=== PATIENT | male | born 1995 | race Caucasian/White ===

== ENCOUNTER 2018-10-14 15:48 | Emergency (ER) | payer OTHER, SELFPAY ==
[2018-10-14 15:49] VITALS: BP 144/93; PULSE 97; RESP 16; TEMP 36.4; BMI 29.7
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
[2018-10-14 16:57] VITALS: BP 134/88; PULSE 88; RESP 16; O2SAT 98
== END 2018-10-14 16:58 | disposition home or self-care (01) ==
LOC: ED 16:38
PROVIDERS: Emergency Provider Emergency Medicine; Family Provider Family Medicine; PCP Family Medicine
DX: S00.511A Abrasion of lip, initial encounter (principal); F32.9 Major depressive disorder, single episode, unspecified; Z79.899 Other long term (current) drug therapy; Y04.2XXA Assault by strike against or bumped into by another person, initial encounter; Y93.89 Activity, other specified; Y92.89 Other specified places as the place of occurrence of the external cause; Y99.8 Other external cause status
CPT/HCPCS: 99282

== ENCOUNTER 2019-01-06 15:44 | Emergency (ER) | payer OTHER, SELFPAY ==
[2019-01-06 15:45] VITALS: BP 160/94; PULSE 78; RESP 16; TEMP 36.8; O2SAT 98; BMI 28.8
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
--- NOTE | 2019-01-06 16:25 | ED.RN ---
SITTER AT BEDSIDE 1615 FOR 1:1 OBSERVATION
[2019-01-06 16:53] LABS: Absolute Lymphocyte Count 1.36 X10^3/ul (0.83-4.51); Absolute Neutrophil Count 4.6 X10^3/uL (2.0-7.7); Basophil# 0.03 X10^3/uL; Basophil% 0.5 % (0-1); Eosinophil# 0.07 X10^3/uL; Eosinophils% 1.1 % (0-5); Hematocrit 45.2 % (40-54); Hemoglobin 15.7 g/dl (13.0-16.5); Lymphocyte # 1.36 X10^3/ul (4.0); Lymphocyte % 20.6 % (19-41); Mean Corp Hgb Conc 34.7 g/gl (32-36); Mean Corpuscular Hgb 29.3 pg (27.0-32.0); Mean Corpuscular Volume 84.3 fL (80-94); Mean Platelet Vol. 9.3 fl (6.2-12.0); Monocyte# 0.52 X10^3/uL; Monocyte% 7.9 % (0-10); Neutrophil % 69.7 % (47-70); Platelet Count 301 K/mm3 (150-450); RBC Distribution Width CV 12.1 % (11.6-14.6); RBC Distribution Width SD 36.9 fl (35.1-43.9); Red Blood Count 5.36 M/mm3 (4.6-6.2); White Blood Count 6.6 K/mm3 (4.4-11.0)
[2019-01-06 16:54] LABS: Amphetamine Urine VISTA NEGATIVE (<1000 ng/mL); Barbiturate Urine VISTA NEGATIVE (< 200 ng/mL); Benzodiazepine Urine VISTA NEGATIVE (< 200 ng/mL); Cocaine Urine VISTA NEGATIVE (< 300 ng/mL); Ecstacy Urine VISTA NEGATIVE (< 500 ng/mL); Methadone Urine VISTA NEGATIVE (< 300 ng/mL); PCP Urine VISTA NEGATIVE (< 25 ng/mL); THC Urine VISTA POSITIVE (< 50 ng/mL); Vista UDS pH Range 6
[2019-01-06 17:08] LABS: Anion Gap 10 (5-15); BUN 12 mg/dL (7-18); BUN/Creat Ratio 11.1 RATIO (10-20); Calcium,Total 8.8 mg/dL (8.5-10.1); Chloride 108 mmol/L (98-107); Creatinine, Serum 1.08 mg/dL (0.70-1.30); EST Glomerular Filtration Rate 88 mL/min (>60); Est Glom Filt Rate - Afr Amer 107 mL/min (>60); Estimated Creatinine Clearance 107.96 ml/min; Glucose 90 mg/dL (74-106); Potassium 3.4 mmol/L (3.5-5.1); Sodium Level 142 mmol/L (136-145)
[2019-01-06 17:18] LABS: POSITIVE COUNT NO; POSITIVE DIFFERENTIAL NO; POSITIVE MORPHOLOGY NO
[2019-01-06 17:21] LABS: Alcohol, Blood (Medical)-Serum < 3.0 mg/dL
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
--- NOTE | 2019-01-06 17:29 | ED.VIS.GEN ---
History of Present Illness Chief Complaint: Suicidal Past Medical History - Allergies and Home Meds Allergies/Adverse Reactions: Allergies No Known Allergies Allergy (Verified 01/06/19 15:48) Smoking Status: Never smoker Physical Exam Vital Signs/Narrative: Vital Signs Temp Pulse Resp BP Pulse Ox 01/06/19 15:45 98.2 F 78 16 160/94 H 98 ED Disposition - Plan for ED Patient: Disposition: Home or Assisted Living Diagnosis: Depression Instructions: Depression Additional Instructions: Followup at the behavioral health center
== END 2019-01-06 17:40 | disposition home or self-care (01) ==
PROVIDERS: Emergency Provider Emergency Medicine; Family Provider Family Medicine; PCP Family Medicine
DX: F32.9 Major depressive disorder, single episode, unspecified (principal); F43.10 Post-traumatic stress disorder, unspecified; Z79.899 Other long term (current) drug therapy
CPT/HCPCS: 36415; 80048; 80307; 80320; 85025; 99283; G0480

== ENCOUNTER 2019-01-13 09:00 | Outpatient (RCR) | payer OTHER, SELFPAY ==
--- NOTE | 2019-01-13 09:02 | BH.SGPN.GN ---
Behaviors/Verbalizations/Mental Status: [Client alert and oriented, casually dressed and appropriately groomed. Eye contact fair to good. Motor activity appropriate. Speech within normal limits. Affect congruent to topic being discussed, mood depressed, anxious. Thoughts linear and logical, no signs of hallucinations or delusions. Reviewed daily check in sheet, pt reports SI as passive, denies plan, or intent. Therapist will check-in to further assess for safety] Client Response/Progress/Benefit: [Pt mostly engaged in group discussion, listening and providing some input to discussion. At times appearing distracted by own thoughts. Emotion for today is anxious and uncomfortable. Pt indicated that current emotion is due to feeling frustrated and worried about ongoing difficulties in managing mental health sx. Expressed continuing to experience PTSD related sx which further effects ability to cope. Pt receptive of support rom the group and recommendations provided for coping with triggers, though appearing somewhat skeptical of the effectiveness as he notes nothing has been helpful yet. Went on to share ?I just don?t want to be sad anymore?. Able to connect with others indicated feeling similar at times in their own lives as well. Progress limited give pt report of difficulties in identifying and applying healthy skills. Pt recommended continued IOP tx to promote use of coping skills, maintain stability, and prevent decompensation. ] Narrative Note: []
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
--- NOTE | 2019-01-15 09:06 | BH.SGPN.GN ---
Behaviors/Verbalizations/Mental Status: []Client alert and oriented, casually dressed and groomed. Eye contact good. Motor activity appropriate. Speech within normal limits. Affect flat, mood depressed. Thoughts linear, logical, no signs of hallucinations or delusions. Reviewed client?s symptom tracker, client reports thoughts of suicide as 4/5 and risk of suicide as 1/5. Client to meet with his individual therapist today to further assess risk. Client Response/Progress/Benefit: []Client entered session alert and oriented, quiet, but participating when prompted. Client reports feeling ?anxious? today. Client stated he is feeling more anxious than usual, but he does not know the trigger. Client reported ?I feel like everything is weighing on me.? Client stated he is having a hard time identifying mental health wins. With further prompting, client able to recognize that he did the dishes and used deep breathing. Client shared he does not know what he needs today, but he realizes that he should avoid being alone as it could reinforce his anxiety and depression. Client appeared to benefit from identifying things he can avoid that would make his symptoms worse. Will continue IOP as client continues to report depressive symptoms and isolation.
--- NOTE | 2019-01-15 10:15 | BH.SGPN.GN ---
Behaviors/Verbalizations/Mental Status: []Client alert and oriented, neatly dressed and groomed. Eye contact poor. Motor activity withdrawn. Speech within normal limits. Affect flat, mood dysthymic, anxious. Thoughts linear, logical, no signs of hallucinations or delusions. Client Response/Progress/Benefit: []Client responded somewhat well to session, appeared distracted AEB eye contact and withdrawn body language. Group stated that negative thoughts impact one?s emotions, behaviors, and increase mental health symptoms. Client listened as the group defined the various types of cognitive distortions and their impact on mental health. Client did not share out loud which distortions he connects with, but at times he nodded when peers provided examples of personal experience with distortions. Appeared to benefit from increasing awareness of cognitive distortions and how they can impact emotions and behaviors. Client continues to struggle with depressive symptoms that impact his functioning. Will continue IOP to prevent decompensation, maintain safety, and promote use of healthy coping skills.
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
--- NOTE | 2019-01-15 14:44 | BH.MTP_ITS ---
Master Treatment Plan - Patient Information Program Physician:: Dr. Ghosh Primary Therapist:: Vonnie Jurado, [facility] - Psychiatric Diagnoses Psychiatric Diagnoses:: Major depressive disorder recurrent severe without psychosis, generalized anxiety disorder, PTSD, Avoidant Traits Diagnosis Code(s):: F33.2 - Estimated LOS Estimated LOS (in weeks):: 6 Problem/Goal #1 - Problem/Goal #1 Stated Goal:: Client will reduce depression and suicidal ideation due to Major Depressive Disorder through the Intensive Outpatient Program. Description of Barriers: Potential treatment barriers include negative thought patterns, distorted thoughts, low motivation, unhealthy coping, and unsure of commitment to program. Functional Impact: Pt's mental health symptoms impacting ability to complete required tasks and responsibilies at work. Pt has taekn a leave of absence from [employer] [facility] [employer] [facility] [employer] due to mental health symptoms. Pt's anxiety hinders him socially because has difficulty going to events or engaging in activities to meet new people. Pt experiencing increased suicidal ideations. Pt not functioning at baseline. Goal Relevant Strengths/Supports: Pt is intelligent and verbalizes desire to get better. Pt identifies his family and friends to be supportive. - Objectives Objective #1 Stated Objective: Client will learn and utilize 2-3 healthy coping strategies to manage depressive symptoms. Interventions: Therapist will assist client in learning internal coping strategies to manage depressive symptoms, along with helping client identify triggers. Discharge Criteria: Client will have achieved this goal when can verbalize and has practiced at least 2 healthy coping strategies. Target Date: 02/24/19 Review Date: 02/10/19 Objective #2 Stated Objective: Pt will decrease depressive symptoms AEB pt?s score on the DSM 5 cross-cutting measure and improve pt?s daily functioning. Interventions: Through groups and individual therapy, pt will be provided with education on cognitive distortions, mistaken beliefs, and identifying and combating negative self-talk. Therapist will assist pt with getting back into the activities she once enjoyed as well as increasing healthy coping strategies. Discharge Criteria: Pt will have met this goal when pt?s score on the DSM 5 cross cutting measure for depression has been decreased and per pt?s report daily functioning has improved Target Date: 02/24/19 Review Date: 02/10/19 Problem/Goal #2 - Problem/Goal #2 Stated Goal:: Reduce overall frequency, intensity, and duration of the anxiety so that daily functioning is not impaired. Description of Barriers: Potential treatment barriers include negative thought patterns, distorted thoughts, low motivation, unhealthy coping, and unsure of commitment to program. Functional Impact: Pt's mental health symptoms impacting ability to complete required tasks and responsibilies at work. Pt has taekn a leave of absence from [employer] [facility] [employer] due to mental health symptoms. Pt's anxiety hinders him socially because has difficulty going to events or engaging in activities to meet new people. Pt experiencing increased suicidal ideations. Pt not functioning at baseline. Goal Relevant Strengths/Supports: Pt is intelligent and verbalizes desire to get better. Pt identifies his family and friends to be supportive. - Objectives Objective #1 Stated Objective: Client will learn and implement 2-3 calming skills to reduce overall anxiety and manage anxiety symptoms. Interventions: Therapist will teach client calming/relaxation skills and how to apply these skills to everyday life. Discharge Criteria: Client will have achieved this goal when can verbalize at least 2 calming strategies and have practiced techniques to help reduce anxiety. Target Date: 02/24/19 Review Date: 02/10/19 Objective #2 Stated Objective: Pt will decrease anxious symptoms AEB pt?s score on the DSM 5 cross-cutting measure improve pt?s daily functioning. Interventions: Through groups and individual therapy, pt will be provided education about anxiety?s impact on body and common physiological reaction to anxiety. Therapist will teach pt appropriate breathing techniques and build healthy coping skills to manage daily anxieties. Discharge Criteria: Pt will have met this goal when pt?s score on the DSM 5 cross cutting measure for anxiety has been decreased and per pt?s report daily functioning has improved. Target Date: 02/24/19 Review Date: 02/10/19
--- NOTE | 2019-01-18 09:03 | BH.SGPN.GN ---
Behaviors/Verbalizations/Mental Status: []Client alert and oriented, neatly dressed and groomed. Eye contact fair. Motor activity restless, shaking his leg throughout session. Speech within normal limits. Affect constricted, mood dysthymic. Thoughts linear, logical, no signs of hallucinations or delusions. Reviewed client?s symptom tracker. Client indicated 2/5 for thoughts of suicide and 1/5 for risk of suicide. Client's individual therapist was informed and he will be meeting with therapist for a session today. Client Response/Progress/Benefit: []Client responded well to session, receptive to encouragement and emotional support from peers. Client reports feeling ?sad? today. Client reported there is no specific trigger ?I just have sad days.? Client declined to share his stressors and symptoms with group today. 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 Client shared one positive from the weekend is that he spent time with a good friend. When asked what he needed today to help support his mental health client replied ?drugs.? With gentle challenging from therapist, client acknowledged he is looking for a quick fix that has more consequences than positives. The group provided client with ideas that can help him break depressive maintenance cycles and cope with his sadness in a healthy way. Client appeared to benefit from receiving support from the group. Will continue IOP to prevent decompensation, maintain safety, and increase mood stability.
--- NOTE | 2019-01-18 14:05 | BH.MDN_ITS ---
Multi-Disciplinary Note - Note 60-min Individual Time Started:: 11:20 Date: 01/18/19 Purpose of session/treatment goals addressed:: Purpose of session was to assess current symptoms and stressors. Other topics include: identifying emotional triggers, education about connection between thoughts, behaviors, and emotions, and identifying small goal. Eye Contact:: Fair Motor Activity:: Restless Appearance:: Casual Speech:: Appropriate Mood:: Anxious, Dysthymic Affect:: Constricted Thoughts:: Linear, No evidence of hallucinations/delusions noted Staff Interventions:: Therapist used open ended questions to elicit pt's current symptoms and stressors. Therapist assisted pt with processing current emotional struggles connected with a friendship. Therapist provided psychoeducation about connection between thoughts, emotions, and behavior. Therapist assisted pt with identifying and challenging current distorted thought patterns that are impacting mood. Therapist inquired current coping skills patient finds to be helpful. Worked with pt to identify small goal to help pt move towards his goals. Client Response:: Client reported he is struggling today because is feeling over his head with the friendship he has with another aron. Client stated even though he knows this male friend identifies as straight, client is having a hard time not developing romantic feelings for him. Client reported after seeing the male friend last night he went home and did a healthy coping skill of emotional release by crying. Client shared this morning he became sad again because started thinking about how he can never be more than friends with the male friend. Client stated he did not use any coping skills this morning which he recognizes has kept him in a depressed mood. Pt able to identify distorted thoughts that he often has to include: He'll never love me; No one will ever love me; chances of me finding someone else like him are slim; I'm not attractive enough for anyone to like me. Pt struggled with challenging the d istorted thought patterns because he stated I believe those thoughts. With assitance pt gained insight if he continues to have distorted thoughts he will maintain his depressive symptoms. Client identified current coping skills are sleeping, hanging out with his male friend, and smoking marijuana. Client stated he wants to learn other coping skills to manage his anxious and depressed symptoms. Client identified small goal is to not take a nap during the day since he uses that as his way to cope. Risks/Concerns:: Client endorses passive thoughts of , denies suicidal plan or intention to date. Client future focused. Progress Toward Goals/Plan:: Client progress minimal as evidenced by client not able to stay in every group due to struggling with managing his emotions. Client continuing to use unhealthy coping despite awareness the coping skills are not helpful in the long-term. Homework provided for patient to work on short term goal of not taking a nap during the day and taking a walk outside to replace nap. Time Stopped:: 12:20
--- NOTE | 2019-01-20 12:04 | BH.DR.ITP ---
Initial Treatment Plan - Patient Information Visit Information: ADMISSION DATE: EXPECTED LOS: 4-6 weeks - Problems/Symptoms Problem #1:: Depression Symptom:: Sadness, negative rumination, hopelessness Problem #2:: Anxiety Symptom:: Worries, panic attacks
--- NOTE | 2019-01-21 09:19 | BH.COMM ---
Communication Note - Communication with Client Communication Note: Pt scheduled for IOP group on previous date however did not show or call to cancel. Pt's individual therapist attempted to follow-up however he was unable to reach pt and a message encouraging pt to follow-up was left. Individual therapist met with pt on 01/18/19. Pt did not appear to be at risk of harm to self or others, was future oriented, and indicated ability to maintain safety. This therapist attempted to contanct pt to reschedule missed appt. and check-in. Pt again unable to be reached. Encouraged to follow-up by 12:30pm. If unable to reach pt, this therapsit will contact emergency contact.
--- NOTE | 2019-01-21 09:52 | BH.COMM ---
Communication Note - Communication with Client Communication Note: Pt called to follow-up regarding missed appt. He indicated that he is alright but was not feeling well which is why he did not attend [facility] on previous date. Upon further inqury pt admitted that he has been feeling depressed and was isolating yesterday. Pt able to recognize the impact of isolation on mental health and reinforcing negative self-talk. Reports chronic passive thoughts of however denies active SI, plan, or intent. Pt reports he is able to maintain safety on this date and stated plans to visit a friend so he would not be alone. Encouraged to return to [facility] tx and Pt reports plans to attend group tomorrow, 01/22/19.
--- NOTE | 2019-01-21 12:42 | BH.COMM ---
Communication Note - Communication with Client Communication Note: This therapist called client's emergency contact, his mother, as client had not called back into IOP. Client's mother shared she heard from client yesterday and that she would go check on client after work. Client's mother was willing to call into IOP after checking on client. Client's mother stated client did not present as an immediate risk to himself or others and denied to her any suicidal plan or intent.
--- NOTE | 2019-01-21 12:57 | BH.COMM ---
Communication Note - Communication with Client Communication Note: Recieved call from Dr. Giles's office regarding pt's progress. Reviewed ROGELIO. Informed that pt has not been consistent with attendance and is not engaged in group when he is present. Dr. Giles requested to speak with our psychiatrist and this was arranged. Dr. Giles has appointment with pt tomorrow afternoon
--- NOTE | 2019-01-22 14:10 | BH.COMM ---
Communication Note - Communication with Client Communication Note: Client called into IOP and cancelled his scheduled IOP sessions today. Client reported I just can't get out of bed. Client denied active suicidal ideations and reports he is scheduled to see his outpatient psychiatrist today. Client scheduled to attend IOP on Friday next week.
--- NOTE | 2019-01-25 12:56 | BH.COMM ---
Communication Note - Communication with Client Communication Note: Pt does not wish to continue in IOP as he does not see the benefits to group counseling. Pt radah be discharged.
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
== END 2019-01-25 10:00 | disposition home or self-care (01) ==
LOC: BHIOP 09:00
PROVIDERS: Family Provider Family Medicine; PCP Family Medicine; Referring Provider Psychiatry & Neurology Psychiatry; Visit Provider Psychiatry & Neurology Psychiatry
DX: F33.2 Major depressive disorder, recurrent severe without psychotic features (principal); F41.8 Other specified anxiety disorders; F43.10 Post-traumatic stress disorder, unspecified; F40.10 Social phobia, unspecified; Z79.899 Other long term (current) drug therapy; F12.90 Cannabis use, unspecified, uncomplicated
CPT/HCPCS: H0035; 90837; 90853

== ENCOUNTER 2019-02-17 09:00 | Outpatient (RCR) | payer OTHER, SELFPAY ==
--- NOTE | 2019-02-17 09:00 | BH.SGPN.GN ---
Behaviors/Verbalizations/Mental Status: [] Eye contact is poor. Motor activity is appropriate. Appearance is casual. Speech is Appropriate. Mood is depressed. Affect is flat. Thoughts are linear and logical. No evidence of psychosis. Reviewed daily check in sheet and pt reports 3/5 for suicidal ideations and 1/5 for intent. Therapist notified. Complete intake prior to group with therapist who reports he is at baseline. Refer to intake. Client Response/Progress/Benefit: [] Pt spoke when prompted. States that he has returned to [facility] to work o n his depression, anxiety, and PTSD. States I want to improve in all area of my life. Reports that he is more motivated to work on his mental health than he was in the past. Benefited from group support and encouragement. Will continue in [facility] to maintain safety, prevent decompensation, and improve functioning. Narrative Note: []
--- NOTE | 2019-02-17 10:10 | BH.SGPN.GN ---
Behaviors/Verbalizations/Mental Status: [] Eye contact is good. Motor activity is appropriate. Appearance is causal. Speech is Appropriate. Mood is depressed. Affect is flat. Thoughts are linear and logical. No evidence of psychosis. Client Response/Progress/Benefit: [] Pt minimally participated however was attentive throughout the group. Group worked together to define goals and identify the purpose of developing goals which included; identifying and making healthy changes or attempting to maintain a behavior. Group also identified barriers to setting and accomplishing goals which include; can be overwhelming, too much effort, fear of failure, and limited awareness of what to do or change. Attentive during education on developing SMART goals. Benefited from increase awareness of goal-setting methods. Will continue in IOP to prevent decompensation, maintain safety, and increase healthy coping skills. Narrative Note: []
--- NOTE | 2019-02-17 11:51 | BH.DR.ITP ---
Initial Treatment Plan - Patient Information Visit Information: ADMISSION DATE: EXPECTED LOS: 4-6 weeks - Problems/Symptoms Problem #1:: Depression Symptom:: sadness, anhedonia, rumination Symptom:: self-harm by cutting Problem #2:: ANxiety Symptom:: feeling panicky
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
--- NOTE | 2019-02-26 09:00 | BH.SGPN.GN ---
Behaviors/Verbalizations/Mental Status: [] Eye contact is poor. Motor activity is appropriate. Appearance is casual. Speech is Appropriate. Mood is depressed. Affect is flat. Thoughts are linear and logical. No evidence of psychosis. Reviewed daily check in sheet and pt reports 3/5 for suicidal thoughts and 2/5 for intent. Therapist will check in with patient after group. Client Response/Progress/Benefit: [] Pt spoke when prompted. Shared with the group mental health wins which included starting to write again. 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 Shared how this helps with mental health struggles. Anxiety and stress related to filling out [employer] paperwork from work as he is fearful it will not go through. Limited progress due to poor attendance and participation. Not utilizing any skills aside from distraction and sleep (escape). Group provided support, encouragement, and feedback. Will continue in IOP to maintain safety, improve functioning, and increase healthy coping skills. Narrative Note: []
--- NOTE | 2019-02-26 10:24 | BH.SGPN.GN ---
Behaviors/Verbalizations/Mental Status: [Client alert and oriented, casually dressed and groomed. Eye contact fair. Motor activity appropriate. Speech within normal limits, quiet tone. Affect constricted, mood anxious, depressed. Thoughts linear, logical, no signs of hallucinations or delusions. ] Client Response/Progress/Benefit: [Client receptive of session, struggled to remain engaged in discussion though did well to provide some input when elicited by therapist. He listened throughout discussion on the quote and appeared to connect with input provided by fellow participants AEB taking notes and nodding, however pt continues to struggle with self-reflection and connecting group discussion to own life. Client identified communication has been a barrier to communicating emotions with supports in the past. Additionally, noted connecting with discussion surrounding fear of being a burden as a potential barrier. Pt appeared to identify with the benefits of being able to communicate during stressful situations described by the group. He displayed progress in overall ability to participate as displayed by pt volunteering to take on an active participatory role in the activity. He did well to utilize effective communication skills to regulate emotions and ask fellow participants for support as needed, which is outside of pt typical comfort zone. Client appeared to benefit from increasing awareness of how emotions can impact communication and practicing in the moment coping skills. Client to continue IOP to continue o improve ability to discuss mental health and reach out to supports, decrease self-deprecation, reinforce healthy coping skills, as well as prevent decompensation. ] Narrative Note: []
--- NOTE | 2019-02-26 14:37 | BH.MDN ---
Multi-Disciplinary Note - Note 45-min Individual Time Started:: 11:42 Date: 02/26/19 Purpose of session/treatment goals addressed:: Pt expressed increased SI on daily sx policy checker during Process Group. Purpose of this session was to complete a risk assessment, address current stressors, and create a safety plan for weekend. Eye Contact:: Good Motor Activity:: Appropriate Appearance:: Casual Speech:: Appropriate Mood:: Depressed Affect:: Congruent Thoughts:: Linear, Logical, No evidence of hallucinations/delusions noted Staff Interventions:: Therapist asked open-ended and furthering questions to gather additional information regarding pt current sx, stressors, and risk. Completed CSSR to further assess risk level. Utilized VA techniques to elicit change behavior and create a weekend safety plan. Provided local crisis resources. Client Response:: Pt receptive of session and open to discussing factors leading to increased scores for SI on daily self-check sheet this morning. Pt noted scores of 3/5 for suicidal ideation and 2/5 for intent. When therapist inquired what may be contributing to increase in score, pt expressed ?I don?t know, I?m just lonely?. He went on to discuss that when alone his negative thoughts tend to increase and he feels more depressed, noting loneliness as a common trigger for increased SI. Pt shared feeling he has exhausted the amount of help he can ask for from his supports and expressed ?I don?t want to burn them out, I feel like they need a break from me?. Therapist gently challenged pt on this and pt indicated his supports have never indicated they are overwhelmed or frustrated by him. He did well to identify that his supports have expressed the opposite and continue to encourage him to hangout or talk whenever he needs. Pt displayed some progress in ability to imagine himself in his supports? position and discussed that he would be upset if they did not trust he was serious about wanting them to reach out anytime needed. Upon further discussion and completion of the CSSR screener, pt scores represent moderate risk without plan, or intent. Pt indicates ability to maintain safety, is receptive of information on local crisis resources with willingness to seek help should he no longer feel able to maintain safety, and is willing to create a safety plan for weekend. Pt reports passive thoughts of , specifically a brief thought of ?I thought about googling the best way to kill yourself?. Pt denies doing this or related researching of any kind. Denies active SI, specific plan, or intent. Reports thoughts of self-harm 2 weeks ago, denies acting on this. Denies current self-harming thoughts. Open to discussing alternative to self-harming and reports plans to take a cold shower if experiencing these thoughts. Pt and therapist utilized remainder of session to complete safety plan for weekend. Pt expressed plans to meet a friend at the [employer] in [place] after group so that he is not alone. Pt willing to call and follow-up with therapist upon doing so. Expressed plans to spend time writing as well. Risks/Concerns:: See above documentation Progress Toward Goals/Plan:: Limited progress. Pt has had infrequent and inconsistent attendance. Has missed last 2 scheduled group appointments. Recently met with psychiatrist 02/17/19. Medication compliant. Support is pt mother and close friend who lives in his apartment building. Pt is making some, limited progress; however, continues to struggle with group participation, application of healthy coping during times of distress or when upset, and reports significant distorted thought patterns. Pt struggles to reach out to supports consistently due to fears of being a burden. Plan is to continue in IOP on consistent basis to continue to promote change behaviors, reduce depression, and maintain safety. Time Stopped:: 12:27
--- NOTE | 2019-02-26 15:38 | BH.COMM_ITS ---
Communication Note - Communication with Client Communication Note: Therapist contacted pt to follow-up and ensure pt adhered to agreed upon safety plan for afternoon. 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 Pt additionally indicated plans to attend the [place] [employer] festival with friends this weekend. Reports ability to maintain safety and expressed plans to return to group on friday03/01/19.
--- NOTE | 2019-03-01 15:57 | BH.COMM ---
Communication Note - Communication with Client Communication Note: Pt called in again this AM to cancel. He requested to change IOP days to tomorrow. Pt has missed several IOP days due to reported illness. Poor participation in the program. Staff will address this with pt at his next visit.
--- NOTE | 2019-03-02 09:00 | BH.SGPN.GN ---
Behaviors/Verbalizations/Mental Status: [] Eye contact is poor. Motor activity is appropriate. Appearance is casual. Speech is Appropriate. Mood is depressed. Affect is flat. Thoughts are linear and logical. No evidence of psychosis. Reviewed daily check in sheet and no reports 3/5 for suicidal thoughts and 1/5 for intent. Therapist notified. Client Response/Progress/Benefit: [] Pt participated when prompted. Appears disinterested in group discussion and peers. Very short check-in. Daily symptom tracker indicates low anxiety and 4/5 for hopelessness. Utilizing distraction as primary skills which involves playing video games. No progress noted. Minimal effort into group. Inconsistent attendance. Limited benefit from group today. Will continue in IOP to maintain safety, prevent decompensation, and improve functioning. Narrative Note: []
--- NOTE | 2019-03-02 15:04 | BH.MDN ---
Multi-Disciplinary Note - Note 30-min Individual Time Started:: 10:07 Date: 03/02/19 Purpose of session/treatment goals addressed:: Pt expressed wanting to leave for the day following first group and appeared agitated and anxious. Pt indicated SI on daily sx die drawing checker during Process Group. Purpose of this session was to complete a risk assessment, address current stressors and concerns, as well as create a safety plan. Eye Contact:: Good Motor Activity:: Appropriate Appearance:: Casual Speech:: Appropriate Mood:: Anxious, Depressed Affect:: Other - At times incongruent AEB pt smiling and laughing while discussing depression and passive thoughts of . Thoughts:: Linear, Logical, No evidence of hallucinations/delusions noted Staff Interventions:: Therapist asked open-ended and furthering questions to gather additional information regarding pt current sx and stressors resulting in increased anxiety and desire to leave program early on this day. Elicited additional information to assess current risk as well as completed CSSR. Aided pt in establishment of Safety plan for today. Gently challenged pt use of distorted thinking patterns and expressed low motivation and desire to utilize distraction as avoidance. Utilized ND techniques to elicit change behavior and continue to promote engagement in the therapeutic process. Client Response:: Pt expressed plans to leave IOP early on this date and appeared to be anxious and slightly agitated. He was receptive of meeting with this therapist for an individual session prior to leaving group for the day, as primary therapist was facilitating group. Pt expressed ?I don?t know, I?m just really overwhelmed right now? and ?Can I be completely honest? I just really hate being in groups?. He went to indicate that he has difficulties in empathizing with fellow participants, especially during process group, and finds that hearing others discuss their struggles makes him feel worse. Pt expressed continued depression and passive SI since last session on 02/26/19. Pt reports he has been struggling with low motivation to utilize the skills he has learned such as opposite action, thought challenging, and grounding. Denies utilizing the Safety Plan created on 02/26/19 in which pt was to spend time at a dog park with his friend as well as go to [employer]. Reports instead he visited a friend in the apartment building he lives in and ended up drinking alcohol which resulted in pt feeling too sick the next day to attend the [employer] as planned. Pt reports he does not believe this had any negative impacts on mental health progress as he was still able to spend time with friends throughout weekend. Pt continues to report relying solely on his mother and friend in his apartment building for support despite expressed feelings of guilt and fears these supports will become ?burnt out?. Pt able to identify additional supports when prompted, though indicates lack of desire to reach out to them or indicates he is unable to. Reports feeling lonely yesterday evening and engaged in self-harming behaviors via superficial lacerations to his forearm. Pt has a hx of self-harming behaviors via cutting and denies SI or intent to at time of self-harming. Reports he attempted to shawer to prevent self-harm which was unsuccessful, denies using any other grounding or calming skills at that time. Check-in sheet for this date indicated SI at a score of 3/5 and 1/5 for intent. This is consistent with pt baseline and a decrease in score from previous session. Reports passive SI over weekend though denies any plan or intent during that time. Denies active SI, plan, or intent as of this date. Upon further discussion and completion of the CSSR screener, pt scores continue to represent moderate risk without plan, or intent. Pt indicates ability to maintain safety, reports ?I?m not going to hurt myself. I?m too afraid to do that and I have too many people in my life to let myself do that?. He is willing to create a safety plan for the evening and indicates willingness to place any knives in the apartment out of reach until able to give them to his mother this evening. Pt denies current self-harming urges. He expressed plans to attend outpatient psychiatry this afternoon and spend time with his mother this evening in order to maintain safety. Pt willing to call and follow-up with therapist by noon to indicate he has removed any access to lethal means. Risks/Concerns:: See above documentation. Progress Toward Goals/Plan:: Some regression. Pt continues to struggle significantly with isolation, avoidance, and negative thoughts causing increased depression and suicidal ideation. He is able to identify common triggers and warning signs for increased SI as well as potential healthy strategies to reduce crisis escalation and maintain safety. However, despite reporting understanding of the impact isolation and avoidance have on reinforcing depressive sx, pt continues to self-report use of distraction via video games and movies as primary means of coping. Pt self-reports low motivation to apply healthy coping skills or engage in IOP program or group treatment. This is evident by poor attendance and multiple cancelations or rescheduling of IOP appointments. Indicates a desire to seek more intensive individual outpatient services. Pt concerns will be discussed with his outpatient providers as well as individual therapist for IOP program as this therapist is not pt primary therapist. Pt agreeable to discuss concerns and treatment options with his mother and follow-up. As of this session, pt is to remain in IOP tx to maintain safety and prevent decompensation until able to connect with outpatient resources. Time Stopped:: 10:37
--- NOTE | 2019-03-02 16:18 | BH.COMM ---
Communication Note - Communication with Client Communication Note: Therapist contacted pt outpatient psychiatrist, Dr. Giles, for coordination of care purposes and to discuss concerns regaurding pt limited progress in IOP program, difficulties engaging in treatment process, poor attendance, and reported desire to seek more intensive individual outpatient services. Psychiatrist agreeable to discuss further with pt at appointment this afternoon. Will continue to coordinate plan of care.
--- NOTE | 2019-03-02 16:21 | BH.COMM ---
Communication Note - Communication with Client Communication Note: Therapist attempted to contact pt outpatient therapist, Cecilia López, to discuss concerns and plan of care. Unable to reach outpatient provider and a discrete message was left requesting a follow-up phone call.
--- NOTE | 2019-03-02 16:23 | BH.COMM ---
Communication Note - Communication with Client Communication Note: Pt called to follow-up with this therapist as discussed in individual session. Indicates that he has removed any lethal means from his access and is planning to download a new video game to play until attending outpatient psychiatry appointment at 2pm. Pt open to family session with his mother and individual therapist to discuss plan of care moving forward.
== END 2019-03-06 23:59 ==
LOC: BHIOP 09:00
PROVIDERS: Family Provider Family Medicine; PCP Family Medicine; Referring Provider Psychiatry & Neurology Psychiatry; Visit Provider Psychiatry & Neurology Psychiatry
DX: F33.2 Major depressive disorder, recurrent severe without psychotic features (principal); F41.1 Generalized anxiety disorder; F43.10 Post-traumatic stress disorder, unspecified
CPT/HCPCS: H0035; 90832; 90834; 90853

== ENCOUNTER 2019-03-09 09:00 | Outpatient (RCR) | payer OTHER, SELFPAY ==
--- NOTE | 2019-03-09 10:21 | BH.SGPN.GN ---
Behaviors/Verbalizations/Mental Status: [Client alert and oriented, casually dressed and grooming fair. Eye contact fair to good. Motor activity appropriate. Speech within normal limits. Affect constricted, mood depressed. Thoughts linear, logical, at times appearing ruminative in nature, no signs of hallucinations or delusions.] Client Response/Progress/Benefit: [Pt receptive to session, provided minimal input though appearing to listen throughout discussion on stress. Able to connect with input provided by fellow participants on potential positive and negative aspects of stress on physical and mental health. Pt expressed specifically relating to example that stress can result in an increased reliance on unhealthy habits such as sleeping and avoidance. He participated in identifying current stressors impacting mental health. Pt's current stressors include: work related anxiety, expectations of self and others, societal standards, relationships, loneliness, bills, sadness, and anxiety. Pt elected not to process stressors further, though shared loneliness and sadness as major stressors. Appeared to benefit from gaining awareness of own current stressors and learning about the impact stress has on overall wellbeing. Progress limited due to pt inconsistent attendance and engagement in treatment. Recommended continued IOP tx to maintain safety, improve utilization of healthy coping and use of social supports, and reduce depressive sx.] Narrative Note: []
--- NOTE | 2019-03-09 11:17 | BH.SGPN.GN ---
Behaviors/Verbalizations/Mental Status: []Client alert and oriented, casually dressed and groomed. Eye contact fair. Motor activity appropriate. Speech within normal limits. Affect flat, mood depressed and anxious. Thoughts linear, logical, no signs of hallucinations or delusions. Client Response/Progress/Benefit: []Pt passive participant during group discussion, contributed thoughts when elicited by therapist. Pt worked with the group to complete the challenge activity and with elicitation able to identify barriers encountered that may also impact managing stress in daily life. Pt listened attentively to psychoeducation and discussion about the 4 A's of managing stress. Pt stated he wants to work on the adapting by changing his negative thinking. Pt identified using positive self-talk and improving his environment could help. Benefited from increased awareness of the impact of stress on mental health and increasing repertoire stress management strategies. Pt to continue in IOP to prevent decompensation, increase generalization of healthy coping skills, and challenge distorted thoughts. Narrative Note: []
--- NOTE | 2019-03-09 16:38 | BH.MTP ---
Master Treatment Plan - Patient Information Program Physician:: Dr. Ghosh Primary Therapist:: Vonnie Jurado, [facility] - Psychiatric Diagnoses Psychiatric Diagnoses:: Major depressive disorder recurrent severe without psychosis, generalized anxiety disorder, PTSD, Avoidant and Borderline Traits Diagnosis Code(s):: F33.2 - Estimated LOS Estimated LOS (in weeks):: 6 Problem/Goal #1 - Problem/Goal #1 Stated Goal:: Reduce overall frequency, intensity, and duration of the anxiety so that daily functioning is not impaired. Description of Barriers: Potential treatment barriers include negative thought patterns, distorted thoughts, low motivation, substance use, and use of unhealthy coping skills. Additional barrier is unsure of pt commitment to program due to pt discharging from [facility] 3 weeks ago because didn't like group therapy. Functional Impact: Pt's mental health symptoms impacting ability to complete required tasks and responsibilities at work. Pt has taken a leave of absence from work due to mental health symptoms. Pt's anxiety hinders him socially because has difficulty going to events or engaging in activities to meet new people. Pt experiencing increased suicidal ideations. Pt not functioning at baseline. Goal Relevant Strengths/Supports: Pt is intelligent and verbalizes desire to get better. Pt identifies his family and friends to be supportive. - Objectives Objective #1 Stated Objective: Client will learn and implement 2-3 calming skills to reduce overall anxiety and manage anxiety symptoms. Interventions: Therapist will teach client calming/relaxation skills and how to apply these skills to everyday life. Discharge Criteria: Client will have achieved this goal when can verbalize at least 2 calming strategies and have practiced techniques to help reduce anxiety. Target Date: 03/31/19 Review Date: 03/17/19 Objective #2 Stated Objective: Pt will decrease anxious symptoms AEB pt?s score on the DSM 5 cross-cutting measure improve pt?s daily functioning. Interventions: Through groups and individual therapy, pt will be provided education about anxiety?s impact on body and common physiological reaction to anxiety. Therapist will teach pt appropriate breathing techniques and build healthy coping skills to manage daily anxieties. Discharge Criteria: Pt will have met this goal when pt?s score on the DSM 5 cross cutting measure for anxiety has been decreased and per pt?s report daily functioning has improved. Target Date: 03/31/19 Review Date: 03/17/19 Problem/Goal #2 - Problem/Goal #2 Stated Goal:: Client will reduce depression and suicidal ideation due to Major Depressive Disorder through the Intensive Outpatient Program. Description of Barriers: Potential treatment barriers include negative thought patterns, distorted thoughts, low motivation, substance use, and use of unhealthy coping skills. Additional barrier is unsure of pt commitment to program due to pt discharging from [facility] 3 weeks ago because didn't like group therapy. Functional Impact: Pt's mental health symptoms impacting ability to complete required tasks and responsibilities at work. Pt has taken a leave of absence from work due to mental health symptoms. Pt's anxiety hinders him socially because has difficulty going to events or engaging in activities to meet new people. Pt experiencing increased suicidal ideations. Pt not functioning at baseline. Goal Relevant Strengths/Supports: Pt is intelligent and verbalizes desire to get better. Pt identifies his family and friends to be supportive. - Objectives Objective #1 Stated Objective: Client will learn and utilize 2-3 healthy coping strategies to manage depressive symptoms. Interventions: Therapist will assist client in learning internal coping strategies to manage depressive symptoms, along with helping client identify triggers. Discharge Criteria: Client will have achieved this goal when can verbalize and has practiced at least 2 healthy coping strategies. Target Date: 03/31/19 Review Date: 03/17/19 Objective #2 Stated Objective: Pt will decrease depressive symptoms AEB pt?s score on the DSM 5 cross-cutting measure and improve pt?s daily functioning. Interventions: Through groups and individual therapy, pt will be provided with education on cognitive distortions, mistaken beliefs, and identifying and combating negative self-talk. Therapist will assist pt with getting back into the activities she once enjoyed as well as increasing healthy coping strategies. Discharge Criteria: Pt will have met this goal when pt?s score on the DSM 5 cross cutting measure for depression has been decreased and per pt?s report daily functioning has improved Target Date: 03/31/19 Review Date: 03/17/19
--- NOTE | 2019-03-09 22:18 | BH.MDN_ITS ---
Multi-Disciplinary Note - Note 45-min Individual Time Started:: 09:20 Date: 03/09/19 Purpose of session/treatment goals addressed:: Purpose of session was to assess pt's current symptoms and stressors. Other topics included assessing suicidal lethality, identified consequences of substance use, education on behavioral activation. Eye Contact:: Good Motor Activity:: Restless Appearance:: Casual Speech:: Appropriate Mood:: Anxious, Depressed Affect:: Constricted Thoughts:: Linear, Logical, No evidence of hallucinations/delusions noted Staff Interventions:: Therapist used open ended questions to elicit pt's current symptoms and stressors. Therapist processed pt's worries about substance use, assisting pt with identifying consequences of continued use. Therapist provided psychoeducation about behavioral activation and cognitive triangle. Assessed for suicidal lethality. Client Response:: Pt reported over the weekend his mood was better when he was smoking marijuana. Pt shared he spent time with friends and went to a small constitution party, which is something he wouldn't do because of his anxiety. pt stated smoking marijuana chills him out so he can be social around others. Pt expressed concern that he doesn't know if he can stop smoking marijuana because it makes him feel less anxious and makes his mood better. Pt stated although there are benefits to using marijuana he also sees potential consequences. Pt stated he doesn't want to have to rely on a substance to help him function. Pt admitted he hasn't been applying any of the coping skills and strategies that he has learned in IOP. Pt connected with cognitive triangle and concept of behavioral activiation. Pt agreeable to work on engaging in healthy behaviors like listening to music and being social. Pt expressed understanding of needing to attend IOP on a more consistent basis or he won't benefit from program. Risks/Concerns:: Pt stated continues to have suicidal thoughts, denies plan or intentiont to date. Reports lethal means have been removed from home. Future focused. Agreeable to go to nearest emergency room or call 911 if feel unable to maintain safety. Progress Toward Goals/Plan:: Progress limited due to pt's inconsistent attendance. When pt does attend IOP he often doesn't make it to every group due to feeling too anxious. Pt not applying skills outside treatment envrionment. Continues to use marijuana as only coping skill. Pt recommended to continue IOP to increase consistent application of healthy coping, challenge distorted thoughts, and prevent decompensation. Time Stopped:: 10:00
--- NOTE | 2019-03-15 09:02 | BH.SGPN.GN ---
Behaviors/Verbalizations/Mental Status: [Eye contact is fair to good. Motor activity is appropriate. Appearance is neat and grooming appears to be more carefully tended to AEB pt wearing jeans and a polo rather than usual sweat pants, hair styled rather than usual winter hat. Speech is WNL, soft. Mood is depressed, anxious. Affect is constricted. Thoughts are linear and logical. No evidence of psychosis. Pt entered session late and did not complete daily check in sheet. Individual therapist scheduled to meet with pt IOP groups for the day and will further assess for safety. Future oriented.] Client Response/Progress/Benefit: [Pt receptive of session, appearing to be engaged AEB nodding and maintaining eye contact during discussion. Pt provided limited input, though was willing to process with the group despite initial reluctance. He reported difficulties in identifying personal mental health wins and indicated I mean I can give you small positives, but I don't really know about mental health wins. With some guidance, pt able to identify two wins which included spending time being creative over the weekend rather than playing video games. Pt recognized that this is an activity he enjoys that he has not made time for in several weeks and is glad that he was able to do so. Additional win includes putting more effort into his appearance and taking the time to style his hair rather than wearing typical sweatpants and winter cap. Shared doing so as a small step towards preparing himself for returning to work which has been a major stressor for him. Pt progress limited due to inconsistent attendance, limited engagement when in attendance, and self-reports of identified skills. Recommended continued IOP tx to prevent decompensation, increase mood stability, and reinforce application of emotion regulation skills.] Narrative Note: []
--- NOTE | 2019-03-16 16:42 | BH.COMM ---
Communication Note - Communication with Client Communication Note: Pt called to cancel attending IOP today due to not feeling well. Staff reminded pt if he doesn't attend IOP at least two times this week he will be dishcarged from program. Pt stated he would attend IOP tomorrow and .
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
--- NOTE | 2019-03-18 16:48 | BH.COMM_ITS ---
Communication Note - Communication with Client Communication Note: Pt no showed/no called attending IOP on 03/17/19 and 03/18/19. 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 Informed pt he would be discharged from program due to not attending program enough to qualify as intensive outpatient treatment. Asked pt to return phone call to ensure aftercare plan was established. Pt is already established with outpatient counseling and psychiatry.
== END 2019-04-05 23:59 ==
LOC: BHIOP 09:00
PROVIDERS: Family Provider Family Medicine; PCP Family Medicine; Referring Provider Psychiatry & Neurology Psychiatry; Visit Provider Psychiatry & Neurology Psychiatry
DX: F33.2 Major depressive disorder, recurrent severe without psychotic features (principal); F41.1 Generalized anxiety disorder; F43.10 Post-traumatic stress disorder, unspecified; F40.10 Social phobia, unspecified
CPT/HCPCS: H0035; 90834; 90853

== ENCOUNTER → 2019-04-12 09:43 | Outpatient (CLI) | payer OTHER, SELFPAY ==
[2019-04-12 12:35] LABS: Hematocrit 45.6 % (40-54); Hemoglobin 14.8 g/dL (13.0-16.5)
== END ==
PROVIDERS: Nurse Practitioner Family; Family Provider Family Medicine; PCP Family Medicine; Visit Provider Family Medicine
DX: R11.10 Vomiting, unspecified (principal)
CPT/HCPCS: 36415; 85014; 85018

== ENCOUNTER → 2019-05-03 15:10 | Outpatient (CLI) | payer OTHER, SELFPAY ==
[2019-05-03 18:19] LABS: Hematocrit 41.7 % (40-54); Hemoglobin 13.9 g/dL (13.0-16.5); Mean Corp Hgb Conc 33.3 g/dL (32-36); Mean Corpuscular Hgb 29.4 pg (27.0-32.0); Mean Corpuscular Volume 88.3 fL (80-94); Mean Platelet Vol. 9.8 fl (6.2-12.0); Platelet Count 241 K/mm3 (150-450); RBC Distribution Width CV 11.9 % (11.6-14.6); RBC Distribution Width SD 38.3 fl (35.1-43.9); Red Blood Count 4.72 M/mm3 (4.6-6.2); White Blood Count 4.7 K/mm3 (4.4-11.0)
[2019-05-03 18:53] LABS: ALB/GLOB Ratio 1.2 RATIO (0.9-2.4); AST(SGOT) 13 U/L (15-37); Alanine Aminotransfer ALT/SGPT 21 U/L (16-61); Albumin, Serum 3.6 g/dL (3.2-5.0); Alkaline Phosphatase 54 U/L (45-117); Anion Gap 5 (5-15); BUN 10 mg/dL (7-18); BUN/Creat Ratio 10.1 RATIO (10-20); Calcium,Total 8.7 mg/dL (8.5-10.1); Chloride 108 mmol/L (98-107); Creatinine, Serum 0.99 mg/dL (0.70-1.30); EST Glomerular Filtration Rate 97 mL/min (>60); Est Glom Filt Rate - Afr Amer 117 mL/min (>60); Globulin 3.1 g/dL (2.2-4.2); Glucose 94 mg/dL (74-106); Lipase 127 U/L (73-393); Potassium 3.9 mmol/L (3.5-5.1); Protein, Total 6.7 g/dL (6.4-8.2); Sodium Level 142 mmol/L (136-145)
[2019-05-05 12:24] LABS: H. Pylori Antibody (IgG) 0.36 (0.00-0.79)
== END ==
PROVIDERS: Family Provider Family Medicine; PCP Family Medicine; Visit Provider Family Medicine
DX: K29.70 Gastritis, unspecified, without bleeding (principal)
CPT/HCPCS: 36415; 80053; 83690; 85027; 86677

== ENCOUNTER 2019-06-24 09:58 | Day surgery (SDC) | payer OTHER, MEDICAID, SELFPAY ==
[2019-06-12 10:48] VITALS: BMI 29.2
--- NOTE | 2019-06-12 11:00 | HP_ITS ---
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 Is patient in pain?: Yes (abdominal) Allergies No Known Allergies Allergy (Verified 06/12/19 10:47) Medications Aripiprazole [Abilify] 5 mg PO DAILY 10/14/18 [History Confirmed 06/12/19] Duloxetine Hcl [Cymbalta] 60 mg PO DAILY 10/14/18 [History Confirmed 06/12/19] Cholecalciferol (Vitamin D3) [Vitamin D] 50,000 unit PO QWEEK 01/13/19 [History Confirmed 06/12/19] [facility] Medical History Abdominal pain (Acute) Acid reflux (Acute) Anxiety (Acute) Blood in stool (Acute) Depression (Acute) Nausea (Acute) Family History Mother Hypertension Father Hypertension Social History (Updated 06/12/19 @ 11:00 by Dennis Villalba MD) Smoking Status: Never smoker alcohol intake: never HPI HPI HPI: LORI BELL, is a 24 M who presents to the office today for HPI HPI Surgical H&P: Yes HPI: LORI BELL is a 24 M who presents to the office today for surgical consultation regarding hematemesis and bright red rectal bleeding. Patient was referred by his primary care physician Dr. Mp Ashford and a written copy of my surgical consult and recommendations will be returned to him. The patient presented to Dr. Martínez Lawson on May 26, 2019. The patient is referred to me by Dr Martínez Lawson and a written copy of my surgical consult will be returned to him. His complaint at that time was bloating diarrhea reflux symptoms rectal bleeding. He claims that for at least a month or so he is been unwell. He has been started on omeprazole a month ago but continues to have nonspecific epigastric mid abdominal pain. There are no particular foods that cause troubles. He does smoke marijuana to assist with the discomfort. There is a family history with a uncle who had colitis. The patient is currently employed at [employer] in [place]. It is of additional note that he feels that he has had approximately a 20 pound weight loss. As of May 03, 2019 white blood cell count was 4.7 with a hemoglobin 13.9 and hematocrit of 41.7 and platelet count 241,000. BUN is 10 and creatinine 0.99. Liver function tests were normal. H. pylori antibody IgG was 0.36 which is normal ROS General General: Yes weight change and fatigue; no appetite, colon cancer, breast cancer or weakness HEENT HEENT: No difficulty swallowing, eye injury, eye surgery, swollen glands or hoarseness Endo Endocrine: No thyroid disease, diabetes mellitus, thyroid cancer, Hair loss, heat intolerance or cold intolerance Skin Skin: No rash or changing moles Breast Breast: No left breast lump, right breast lump, nipple discharge, breast pain, abnormal mammogram, abnormal US or breast enlargement Musc Musculoskeletal: No back problems, arthritis, rheumatoid arthritis, gout or joint pain Cardio Cardiovascular: No murmur, pacemaker, heart disease, atrial fibrillation, high blood pressure, heart attack, heart stent, palpitations, shortness of breat with exertion or chest pain Psych Psychiatric: Yes depression and anxiety; no hearing voices Resp Respiratory: No shortness of breath, No sleep apnea, No cough, No COPD, No asthma, No emphysema, No wheezing Gastro Gastrointestinal: Yes abdominal pain, Yes nausea or vomiting, Yes diarrhea, No constipation, Yes blood in stool, Yes acid reflux, No hemorrhoids, No ulcers, No gallbladder problem, No black,tarry stools Valentin Hematologic: No blood thinners, No blood disorders, No bleeding, No anemia, No blood clots Neuro Neurologic: No system reviewed and no additional complaints, except as docu, No as per HPI, No abnormal walking, No abnormal hearing, No abnormal movements, No abnormal speech, No behavioral changes, No burning sensations, No confusion, No seizure-like activity, No unsteadiness, No dizziness, No localized weakness, No frequent falls, No headache(s), No lack of coordination, No loss of vision, No memory loss, No numbness, No other visual disturbances, No radiating pain, No restless legs, No sensory deficit, No fainting, No tingling, No tremor(s), No weakness, No other Exam Const General: cooperative, healthy appearing, comfortable, no acute distress Nutritional Appearance: overweight Orientation: alert, awake, oriented x3 HENMT Head: normal to inspection Chest Chest palpation & inspection: normal inspection of the chest Breast Palpation: No nipple discharge Resp Effort & Inspection: normal respiratory effort Auscultation: clear to auscultation bilaterally Cardio Rate: regular rate Rhythm: regular rhythm Heart Sounds: no murmurs Other: Bilateral radial and brachial pulses are 3+ GI Palpation: soft, nontender Auscultation: normal bowel sounds Neuro Cognition: normal cognition Extrem General: no calf tenderness bilaterally Psych Attitude: cooperative Assessment & Plan Problems 1. Hematemesis of unknown cause K92.0 2. Rectal bleeding K62.5 3. Weight loss, non-intentional R63.4 4. Generalized abdominal pain R10.84 Plan History of hematemesis and rectal bleeding and 20 pound non-intentional weight loss. There is a remote family history of colitis. The patient in addition is having generalized abdominal pain of undetermined etiology. He is currently on omeprazole therapy which he thinks has helped with a hematemesis but he still has the generalized abdominal pain. I have offered him a esophagogastroduodenoscopy with biopsy and colonoscopy with biopsy or polypectomy is indicated. He is aware of the technique, benefits, risks, alternatives. He has had an opportunity to ask and have questions answered. We will schedule and proceed at his discretion. I anticipate monitored anesthesia care. He is on antidepressants. I very much appreciate the opportunity of assisting with his surgical care Cc: Dr. Mp Ashford and Dr Marítnez Villalba M.D., F.A.C.S. Coding Level of Care Code 54539 Diagnoses Hematemesis of unknown cause K92.0 Rectal bleeding K62.5 Weight loss, non-intentional R63.4 Generalized abdominal pain R10.84 ??Abdominal location: generalized 06/12/19 1100 <Electronically signed by Dennis van MD> Date _ Dennis Villalba MD I have re-examined the patient. There are no clinical changes since date of exam.
[2019-06-24 10:27] VITALS: BP 118/79; PULSE 86; RESP 16; TEMP 36.7; O2SAT 99; BMI 27.8
[2019-06-24] MEDS: Lactated Ringers 1,000 ML 100 ML IV (10:43)
--- NOTE | 2019-06-24 11:00 | EGD_PTH ---
PATIENT: LORI BELL LOC: EN U#:[id number] AGE/SX: 24/M ROOM: RE06/24/[address]: Dr. Dennis iVllalba MD : 1995 BED: DIS: 06/24/2019 SPEC #: [id number] RECD: 06/24/19 12:59 STATUS: RUBY MICHAEL #: [id number] KERRI: 06/24/19 11:[address]: Dennis Villalba DEPT: SURGICAL PATHOLOGY RECD BY: David Clark ENTERED: 06/24/19 13:10 SP TYPE: EGD BIOPSY OT DR: Dr. Mp Ashford MD Tissues: A - Duodenum, NOS B - Gastric mucous membrane C - Gastric mucous membrane D - Gastric mucous membrane E - Esophageal mucous membrane F - COLON BIOPSY Procedures: PAS Fungus (control) Special Stain Group I Surgery Specimen Level IV HEADER OPERATION: Colonoscopy, EGD ([facility] [place]) PRE-OP DIAGNOSIS: Hematemesis, rectal bleeding, weight loss, generalized abdominal pain TISSUE SUBMITTED: A - Duodenum biopsy, B - Antrum biopsy for histo and H. pylori, C - Gastric polyp biopsy, D - Greater curvature biopsy, E - Distal esophagus biopsy, F - Random colon biopsy MICROSCOPIC DIAGNOSIS A. Duodenum biopsy: A fragment of duodenal mucosa with mild mucosal congestion and hemorrhage. B. Antrum biopsy: Mild gastritis. See microscopic description and comment. C. Gastric polyp, biopsy: Consistent with fundic gland polyp. D. Greater curvature biopsy: A fragment of gastric mucosa with mild chronic inflammation and congestion. E. Distal esophagus, biopsy: Fragments of squamous mucosa with focal ulceration, acute and chronic inflammation, granulation tissue reaction and reactive epithelial changes. Special stain for fungi is negative for organisms; matched control is appropriate. F. Colon, random biopsy: Fragments of colonic mucosa, no pathologic diagnosis. SJ:barbara 06/25/19 COMMENT B. The results of immunohistochemistry for Helicobacter pylori will be reported separately ([id number]). MICROSCOPIC DESCRIPTION Slides are reviewed. B. The specimen shows fragments of gastric mucosa with chronic inflammatory cell infiltrates in the lamina propria consisting of lymphocytes and plasma cells, consistent with mild chronic gastritis. Focal mucosal congestion is also noted. GROSS DESCRIPTION A - Received in fixative is one container labeled with the patient's name and designated duodenal biopsy. The specimen consists of one irregular fragment of light powell soft tissue that measures 0.3 x 0.2 x 0.1 cm. The specimen is totally submitted in one cassette. B - Received in fixative is one container labeled with the patient's name and designated antrum biopsy. The specimen consists of one irregular fragment of light powell soft tissue that measures 0.2 x 0.2 x 0.1 cm. The specimen is totally submitted in one cassette. C - Received in fixative is one container labeled with the patient's name and designated gastric polyp biopsy. The specimen consists of one irregular fragment of light powell soft tissue that measures 0.3 x 0.3 x 0.1 cm. The specimen is totally submitted in one cassette. D - Received in fixative is one container labeled with the patient's name and designated greater curvature biopsy. The specimen consists of one irregular fragment of light powell soft tissue that measures 0.8 x 0.2 x 0.1 cm. The specimen is totally submitted in one cassette. E - Received in fixative is one container labeled with the patient's name and designated distal esophagus biopsy. The specimen consists of multiple irregular fragments of light powell soft tissue that in aggregate measure 1 x 0.2 x 0.1 cm. The specimen is totally submitted in one cassette. F - Received in fixative is one container labeled with the patient's name and designated random colonic biopsy. The specimen consists of multiple irregular fragments of light powell soft tissue that in aggregate measure 2.5 x 1 x 0.1 cm. The specimen is totally submitted in one cassette. / SJ:rg 06/24/19 TC:2 CPT: 54901 x6, 33801
--- NOTE | 2019-06-24 11:00 | IMM_PTH ---
PATIENT: LORI BELL LOC: EN U#:[id number] AGE/SX: 24/M ROOM: RE06/24/[address]: Dr. Dennis Villalba MD : 1995 BED: DIS: 06/24/2019 SPEC #: [id number] RECD: 06/24/19 13:38 STATUS: RUBY REKuldip #: [id number] KERRI: 06/24/19 11:[address]: Dennis Villalba DEPT: IMMUNOHISTOCHEMISTRY RECD BY: Annie Cade ENTERED: 06/24/19 13:38 SP TYPE: IMMUNO OTHR DR: Dr. Mp Ashford MD Tissues: B - Stomach, NOS Procedures: H Pylori (initial) PHYSICIAN & INSTITUTION [place] [id number] SPECIMEN INFORMATION: Tissue Source: B - Antrum biopsy Clinical Info: Hematemesis, rectal bleeding, weight loss, generalized abdominal pain Specimen Number: [id number] CPT code: 17667 METHODOLOGY: Deparaffinized sections of prefer/formalin-fixed tissue or PAP/DQ stained slides are incubated with monoclonal/polyclonal antibodies/oligonucleotide probes. Localization is made via biotin free immunoperoxidase method. Appropriate controls are performed and reacted as expected. Results on target cell population are indicated in the following table: RESULTS: ANTIBODY / CLONE RESULT Block B H Pylori (polyclonal) negative These tests were developed and their performance characteristics determined by [facility]. They may not have been cleared or approved by the U.S. Food and Drug Administration. The FDA has determined that such clearance or approval is not necessary. INTERPRETATION: B. Antrum biopsy: Negative for Helicobacter pylori organisms. SJ:barbara 06/25/19
--- NOTE | 2019-06-24 12:36 | OP.EGD_ITS ---
Patient Name: Rakesh Latham Procedure Date: 06/24/2019 11:52 AM Date of : 1995 Age: 24 Procedure: Upper GI endoscopy Indications: Hematemesis Providers: Dennis Villalba MD Referring MD: Mp Ashford Medicines: See the Anesthesia note for documentation of the administered medications Complications: No immediate complications. Procedure: Pre-Anesthesia Assessment: - Prior to the procedure, a History and Physical was performed, and patient medications and allergies were reviewed. The patient's tolerance of previous anesthesia was also reviewed. The risks and benefits of the procedure and the sedation options and risks were discussed with the patient. All questions were answered, and informed consent was obtained. Prior Anticoagulants: The patient has taken no previous anticoagulant or antiplatelet agents. ASA Grade Assessment: II - A patient with mild systemic disease. After reviewing the risks and benefits, the patient was deemed in satisfactory condition to undergo the procedure. After obtaining informed consent, the endoscope was passed under direct vision. Throughout the procedure, the patient's blood pressure, pulse, and oxygen saturations were monitored continuously. The gastroscope was introduced through the mouth, and advanced to the second part of duodenum. The upper GI endoscopy was accomplished without difficulty. The patient tolerated the procedure well. Scope In: 12:07:51 PM Scope Out: 12:16:48 PM Total Procedure Duration Time 0 hours 8 minutes 57 seconds Findings: A medium-sized hiatal hernia was present. LA Grade C (one or more mucosal breaks continuous between tops of 2 or more mucosal folds, less than 75% circumference) esophagitis with bleeding was found 34 to 38 cm from the incisors. Biopsies were taken with a cold forceps for histology. Scattered moderate inflammation characterized by erosions was found on the greater curvature of the stomach. Biopsies were taken with a cold forceps for histology. A few sessile polyps with no stigmata of recent bleeding were found in the stomach. The polyp was removed with a cold biopsy forceps. Resection and retrieval were complete. Diffuse mildly erythematous mucosa without active bleeding and with no stigmata of bleeding was found in the duodenal bulb. Biopsies were taken with a cold forceps for histology. Impression: - Medium-sized hiatal hernia. - LA Grade C reflux esophagitis. Biopsied. 6cm length/ extensive, wide open hiatal hernia - Gastritis. Biopsied. - A few gastric polyps. Resected and retrieved. - Erythematous duodenopathy. Biopsied. Recommendation: - Discharge patient to home. - Resume previous diet. - Continue present medications. - Use sucralfate tablets 1 gram PO QID. - Telephone my office for pathology results in 1 week. Procedure Code(s): --- Professional --- 75377, Esophagogastroduodenoscopy, flexible, transoral; with biopsy, single or multiple Diagnosis Code(s): --- Professional --- K44.9, Diaphragmatic hernia without obstruction or gangrene K21.0, Gastro-esophageal reflux disease with esophagitis K29.70, Gastritis, unspecified, without bleeding K31.7, Polyp of stomach and duodenum K31.89, Other diseases of stomach and duodenum K92.0, Hematemesis CPT copyright 2017 [employer] [place] [employer]. All rights reserved. The codes documented in this report are preliminary and upon yarn dyer review may be revised to meet current compliance requirements. Dennis Villalba MD 06/24/2019 12:36:34 PM This report has been signed electronically. Number of Addenda: 0 Note Initiated On: 06/24/2019 11:52 AM
[2019-06-24 12:37] VITALS: BP 101/59; BP 118/79; PULSE 83; RESP 16; TEMP 36.4; O2SAT 100
--- NOTE | 2019-06-24 12:39 | OP.COLON_ITS ---
Patient Name: Rakesh Latham Procedure Date: 06/24/2019 12:18 PM Date of : 1995 Age: 24 Procedure: Colonoscopy Indications: Rectal bleeding Providers: Dennis Villalba MD Referring MD: Mp Ashford Medicines: See the Anesthesia note for documentation of the administered medications Patient Profile: Last Colonoscopy: none. The patient's first colonoscopy is today. Complications: No immediate complications. Procedure: Pre-Anesthesia Assessment: - Prior to the procedure, a History and Physical was performed, and patient medications and allergies were reviewed. The patient's tolerance of previous anesthesia was also reviewed. The risks and benefits of the procedure and the sedation options and risks were discussed with the patient. All questions were answered, and informed consent was obtained. Prior Anticoagulants: The patient has taken no previous anticoagulant or antiplatelet agents. ASA Grade Assessment: II - A patient with mild systemic disease. After reviewing the risks and benefits, the patient was deemed in satisfactory condition to undergo the procedure. After I obtained informed consent, the scope was passed under direct vision. Throughout the procedure, the patient's blood pressure, pulse, and oxygen saturations were monitored continuously. The Colonoscope was introduced through the anus and advanced to the cecum, identified by appendiceal orifice and ileocecal valve. The colonoscopy was performed without difficulty. The patient tolerated the procedure well. The quality of the bowel preparation was good. The ileocecal valve and the appendiceal orifice were photographed. Scope In: 12:20:25 PM Scope Withdrawal Time 0 hours 6 minutes 57 seconds Scope Out: 12:29:17 PM Total Procedure Duration Time 0 hours 8 minutes 52 seconds Findings: The digital rectal exam findings include non-thrombosed external hemorrhoids, non-thrombosed internal hemorrhoids and internal hemorrhoids that prolapse with straining, but spontaneously regress to the resting position (Grade II). Pertinent negatives include normal sphincter tone. Scattered diverticula were found in the sigmoid colon and descending colon. The exam was otherwise without abnormality. Biopsies for histology were taken with a cold forceps from the entire colon for evaluation of microscopic colitis. Impression: - Non-thrombosed external hemorrhoids, non-thrombosed internal hemorrhoids and internal hemorrhoids that prolapse with straining, but spontaneously regress to the resting position (Grade II) found on digital rectal exam. - Diverticulosis in the sigmoid colon and in the descending colon. - The examination was otherwise normal. - Biopsies were taken with a cold forceps from the entire colon for evaluation of microscopic colitis. Recommendation: - Discharge patient to home. - Resume previous diet. - Continue present medications. - Telephone my office for pathology results in 1 week. - Repeat colonoscopy at age 48. Procedure Code(s): --- Professional --- 17655, Colonoscopy, flexible; with biopsy, single or multiple Diagnosis Code(s): --- Professional --- K64.1, Second degree hemorrhoids K64.4, Residual hemorrhoidal skin tags K62.5, Hemorrhage of anus and rectum K57.30, Diverticulosis of large intestine without perforation or abscess without bleeding CPT copyright 2017 [employer]. All rights reserved. The codes documented in this report are preliminary and upon rubber stamp assembler review may be revised to meet current compliance requirements. Dennis Villalba MD 06/24/2019 12:39:00 PM This report has been signed electronically. Number of Addenda: 0 Note Initiated On: 06/24/2019 12:18 PM
[2019-06-24 12:42] VITALS: BP 118/79; BP 90/56; PULSE 83; RESP 16; O2SAT 100
[2019-06-24 12:47] VITALS: BP 101/60; BP 118/79; PULSE 85; RESP 16; O2SAT 100
[2019-06-24 12:52] VITALS: BP 105/63; BP 118/79; PULSE 82; RESP 16; TEMP 36.2; O2SAT 100
[2019-06-24 13:27] VITALS: BP 118/79
== END 2019-06-24 13:28 | disposition home or self-care (01) ==
LOC: EN 09:59 → AC 10:01
PROVIDERS: Family Provider Family Medicine; PCP Family Medicine; Referring Provider Surgery; Visit Provider Surgery
PROC: 0DJD8ZZ Inspection of Lower Intestinal Tract, Via Natural or Artificial Opening Endoscopic (ICD-10-PCS; CPT 45378; principal; 2019-06-24 10:55)
DX: K29.70 Gastritis, unspecified, without bleeding (principal); K21.0 Gastro-esophageal reflux disease with esophagitis; K44.9 Diaphragmatic hernia without obstruction or gangrene; K31.7 Polyp of stomach and duodenum; K57.30 Diverticulosis of large intestine without perforation or abscess without bleeding; K64.1 Second degree hemorrhoids; K64.4 Residual hemorrhoidal skin tags; F41.9 Anxiety disorder, unspecified; F32.9 Major depressive disorder, single episode, unspecified; G25.81 Restless legs syndrome; Z79.899 Other long term (current) drug therapy
CPT/HCPCS: 43239; 45380; 88305; 88312; 88342; J7120

== ENCOUNTER 2019-07-29 07:49 | Day surgery (SDC) | payer OTHER, MEDICAID, SELFPAY ==
--- NOTE | 2019-06-12 11:00 | HP_ITS ---
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 Is patient in pain?: Yes (abdominal) Allergies No Known Allergies Allergy (Verified 06/12/19 10:47) Medications Aripiprazole [Abilify] 5 mg PO DAILY 10/14/18 [History Confirmed 06/12/19] Duloxetine Hcl [Cymbalta] 60 mg PO DAILY 10/14/18 [History Confirmed 06/12/19] Cholecalciferol (Vitamin D3) [Vitamin D] 50,000 unit PO QWEEK 01/13/19 [History Confirmed 06/12/19] [facility] Medical History Abdominal pain (Acute) Acid reflux (Acute) Anxiety (Acute) Blood in stool (Acute) Depression (Acute) Nausea (Acute) Family History Mother Hypertension Father Hypertension Social History (Updated 06/12/19 @ 11:00 by Dennis Villalba MD) Smoking Status: Never smoker alcohol intake: never HPI HPI HPI: LORI BELL, is a 24 M who presents to the office today for HPI HPI Surgical H&P: Yes HPI: LORI BELL is a 24 M who presents to the office today for surgical consultation regarding hematemesis and bright red rectal bleeding. Patient was referred by his primary care physician Dr. Mp Ashford and a written copy of my surgical consult and recommendations will be returned to him. The patient presented to Dr. Martínez Lawson on May 26, 2019. The patient is referred to me by Dr Martínez Lawson and a written copy of my surgical consult will be returned to him. His complaint at that time was bloating diarrhea reflux symptoms rectal bleeding. He claims that for at least a month or so he is been unwell. He has been started on omeprazole a month ago but continues to have nonspecific epigastric mid abdominal pain. There are no particular foods that cause troubles. He does smoke marijuana to assist with the discomfort. There is a family history with a uncle who had colitis. The patient is currently employed at [employer] in [employer]. It is of additional note that he feels that he has had approximately a 20 pound weight loss. As of May 03, 2019 white blood cell count was 4.7 with a hemoglobin 13.9 and hematocrit of 41.7 and platelet count 241,000. BUN is 10 and creatinine 0.99. Liver function tests were normal. H. pylori antibody IgG was 0.36 which is normal ROS General General: Yes weight change and fatigue; no appetite, colon cancer, breast cancer or weakness HEENT HEENT: No difficulty swallowing, eye injury, eye surgery, swollen glands or hoarseness Endo Endocrine: No thyroid disease, diabetes mellitus, thyroid cancer, Hair loss, heat intolerance or cold intolerance Skin Skin: No rash or changing moles Breast Breast: No left breast lump, right breast lump, nipple discharge, breast pain, abnormal mammogram, abnormal US or breast enlargement Musc Musculoskeletal: No back problems, arthritis, rheumatoid arthritis, gout or joint pain Cardio Cardiovascular: No murmur, pacemaker, heart disease, atrial fibrillation, high blood pressure, heart attack, heart stent, palpitations, shortness of breat with exertion or chest pain Psych Psychiatric: Yes depression and anxiety; no hearing voices Resp Respiratory: No shortness of breath, No sleep apnea, No cough, No COPD, No asthma, No emphysema, No wheezing Gastro Gastrointestinal: Yes abdominal pain, Yes nausea or vomiting, Yes diarrhea, No constipation, Yes blood in stool, Yes acid reflux, No hemorrhoids, No ulcers, No gallbladder problem, No black,tarry stools Valentin Hematologic: No blood thinners, No blood disorders, No bleeding, No anemia, No blood clots Neuro Neurologic: No system reviewed and no additional complaints, except as docu, No as per HPI, No abnormal walking, No abnormal hearing, No abnormal movements, No abnormal speech, No behavioral changes, No burning sensations, No confusion, No seizure-like activity, No unsteadiness, No dizziness, No localized weakness, No frequent falls, No headache(s), No lack of coordination, No loss of vision, No memory loss, No numbness, No other visual disturbances, No radiating pain, No restless legs, No sensory deficit, No fainting, No tingling, No tremor(s), No weakness, No other Exam Const General: cooperative, healthy appearing, comfortable, no acute distress Nutritional Appearance: overweight Orientation: alert, awake, oriented x3 HENMT Head: normal to inspection Chest Chest palpation & inspection: normal inspection of the chest Breast Palpation: No nipple discharge Resp Effort & Inspection: normal respiratory effort Auscultation: clear to auscultation bilaterally Cardio Rate: regular rate Rhythm: regular rhythm Heart Sounds: no murmurs Other: Bilateral radial and brachial pulses are 3+ GI Palpation: soft, nontender Auscultation: normal bowel sounds Neuro Cognition: normal cognition Extrem General: no calf tenderness bilaterally Psych Attitude: cooperative Assessment & Plan Problems 1. Hematemesis of unknown cause K92.0 2. Rectal bleeding K62.5 3. Weight loss, non-intentional R63.4 4. Generalized abdominal pain R10.84 Plan History of hematemesis and rectal bleeding and 20 pound non-intentional weight loss. There is a remote family history of colitis. The patient in addition is having generalized abdominal pain of undetermined etiology. He is currently on omeprazole therapy which he thinks has helped with a hematemesis but he still has the generalized abdominal pain. I have offered him a esophagogastroduodenoscopy with biopsy and colonoscopy with biopsy or polypectomy is indicated. He is aware of the technique, benefits, risks, alternatives. He has had an opportunity to ask and have questions answered. We will schedule and proceed at his discretion. I anticipate monitored anesthesia care. He is on antidepressants. I very much appreciate the opportunity of assisting with his surgical care Cc: Dr. Mp Ashford and Dr Martínez Villalba M.D., F.A.C.S. Coding Level of Care Code 57833 Diagnoses Hematemesis of unknown cause K92.0 Rectal bleeding K62.5 Weight loss, non-intentional R63.4 Generalized abdominal pain R10.84 ??Abdominal location: generalized 06/12/19 1100 <Electronically signed by Dennis van MD> Date _ Dennis Villalba MD
[2019-07-16 13:47] VITALS: BMI 27.8
[2019-07-29 08:46] VITALS: BP 129/83; PULSE 73; RESP 16; TEMP 36.8; O2SAT 100
== END 2019-07-29 08:45 | disposition home or self-care (01) ==
PROVIDERS: Family Provider Family Medicine; PCP Family Medicine; Referring Provider Family Medicine; Visit Provider Surgery
PROC: F00ZJWZ Instrumental Swallowing and Oral Function Assessment using Swallowing Equipment (ICD-10-PCS; CPT 43235; principal; 2019-07-29 07:55)
DX: K21.9 Gastro-esophageal reflux disease without esophagitis (principal)
CPT/HCPCS: 91010; 91013

== ENCOUNTER → 2019-09-20 07:00 | Outpatient (CLI) | payer OTHER, MEDICAID, SELFPAY ==
[2019-08-12 10:13] VITALS: BMI 29.2
--- NOTE | 2019-09-15 04:04 | HP_ITS ---
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: No Is patient in pain?: No Allergies No Known Allergies Allergy (Verified 09/15/19 15:23) Medications Duloxetine Hcl [Cymbalta] 60 mg PO DAILY 10/14/18 [History Confirmed 09/15/19] Omeprazole 40 mg PO DAILY 06/21/19 [History Confirmed 09/15/19] sucralfate 100 mg/mL oral suspension 1 g PO 4X/DAY #360 ml 08/12/19 [Rx Confirmed 09/15/19] aripiprazole 5 mg tablet 10 mg PO DAILY tab 09/15/19 [History Confirmed 09/15/19] PFSH Medical History Gastritis (Acute) Abdominal pain (Acute) Weight loss, non-intentional (Acute) Rectal bleeding (Acute) Hematemesis of unknown cause (Acute) Acid reflux (Acute) Blood in stool (Acute) Nausea (Acute) Abdominal pain (Acute) Anxiety (Acute) Depression (Acute) Surgical History History of esophagogastroduodenoscopy (EGD) (Acute) Hx of colonoscopy (Acute) Family History Mother Hypertension Father Hypertension Social History (Updated 09/15/19 @ 16:04 by Pavithra Arciniega PA-C) Smoking Status: Never smoker alcohol intake: never substance use type: does not use what type of physical activity do you participate in: none frequency: does not exercise seatbelt use: always HPI HPI HPI: LORI LATHAM is a 24 M who presents to the office today for HPI HPI Surgical H&P: Yes HPI: LORI LATHAM is a 24 M who presents to the office today for an update history and physical. Patient denies recent hospitalizations or illnesses. Patient denies previous complications with anesthesia. He denies cardiac history. Patient's previous history per Dr. Villalba: LORI LATHAM is a 24 M who presents to the office today for ongoing surgical follow-up regarding severe reflux disease and active gastritis. He is currently managed with omeprazole therapy 40 mg daily and sucralfate 4 times daily. States he still has some epigastric discomfort. He states that he has been trying to be more compliant. In additional to the information below on July 29, 2019 had esophageal manometry performed. The LES mean pressure was 8.4 with normal being 13-43. 10 swallows were analyzed. Several swallows demonstrated reflux of bolus after clearance requiring a second swallow to clear. There was a very low LES tone throughout the entire procedure. Contractile strength was felt to be normal. Prior to the patient's esophageal manometry my office notes reflect the following: LORI LATHAM is a 24 M who presents to the office today for surgical consultation regarding hematemesis and rectal bleeding and epigastric pain. On June 24, 2019 I performed a combined upper and lower endoscopy for him. Duodenal biopsies showed some mild mucosal congestion. Antral biopsies mild gastritis. On the greater curvature there was an area of inflammation consistent with mild chronic active inflammation. There were fundic gland polyps that were benign. The distal esophagus was noted to be wide open with hiatal hernia. There was focal ulceration of the mucosa with acute and chronic inflammation of reflux. No fungus identified. H. pylori was negative. Colonoscopy was not remarkable with random colonic biopsies unremarkable and normal. It is felt that the patient's epigastric pain is secondary to gastritis medium- sized hiatal hernia active reflux esophagitis and lack of tone of the LES. He was supposed to been on omeprazole therapy 40 mg daily but appears that this is of variable compliance. At the time of his upper endoscopy I requested that he add sucralfate 1 g p.o. 4 times daily. He has been only partially compliant. He is still complaining of epigastric pain. Regarding the rectal bleeding symptoms I felt that it was likely hemorrhoidal in nature. He did have some diverticulosis. Nonoperative conservative measures recommended. My original office visit notes reflect the following history of complaint: LORI LATHAM, is a 24 M who presents to the office today for surgical consultation regarding hematemesis and bright red rectal bleeding. Patient was referred by his primary care physician Dr. Mp Ashford and a written copy of my surgical consult and recommendations will be returned to him. The patient presented to Dr. Martínez Lawson on May 26, 2019. The patient is referred to me by Dr Martínez Lawson and a written copy of my surgical consult will be returned to him. His complaint at that time was bloating diarrhea reflux symptoms rectal bleeding. He claims that for at least a month or so he is been unwell. He has been started on omeprazole a month ago but continues to have nonspecific epigastric mid abdominal pain. There are no particular foods that cause troubles. He does smoke marijuana to assist with the discomfort. There is a family history with a uncle who had colitis. The patient is currently employed at [employer] in [place]. It is of additional note that he feels that he has had approximately a 20 pound weight loss. As of May 03, 2019 white blood cell count was 4.7 with a hemoglobin 13.9 and hematocrit of 41.7 and platelet count 241,000. BUN is 10 and creatinine 0.99. Liver function tests were normal. H. pylori antibody IgG was 0.36 which is normal [facility] Medical Records Department [address] [place] [address] EGD Report MR#: [id number] Name:LORI LATHAMRep #:[id number] : 1995 24From: Dennis Villalba MD PCP:Mp Ashford MD [place] [facility] [place] Name: Lori Latham Procedure Date: 06/24/2019 11:52 AM Date of : 1995 Age: 24 Procedure: Upper GI endoscopy Indications: Hematemesis Providers: Dennis Villalba MD Referring MD: Mp Ashford Medicines: See the Anesthesia note for documentation of the administered medications Complications: No immediate complications. Procedure: Pre-Anesthesia Assessment: - Prior to the procedure, a History and Physical was performed, and patient medications and allergies were reviewed. The patient's tolerance of previous anesthesia was also reviewed. The risks and benefits of the procedure and the sedation options and risks were discussed with the patient. All questions were answered, and informed consent was obtained. Prior Anticoagulants: The patient has taken no previous anticoagulant or antiplatelet agents. ASA Grade Assessment: II - A patient with mild systemic disease. After reviewing the risks and benefits, the patient was deemed in satisfactory condition to undergo the procedure. After obtaining informed consent, the endoscope was passed under direct vision. Throughout the procedure, the patient's blood pressure, pulse, and oxygen saturations were monitored continuously. The gastroscope was introduced through the mouth, and advanced to the second part of duodenum. The upper GI endoscopy was accomplished without difficulty. The patient tolerated the procedure well. Scope In: 12:07:51 PM Scope Out: 12:16:48 PM Total Procedure Duration Time 0 hours 8 minutes 57 seconds Findings: A medium-sized hiatal hernia was present. LA Grade C (one or more mucosal breaks continuous between tops of 2 or more mucosal folds, less than 75% circumference) esophagitis with bleeding was found 34 to 38 cm from the incisors. Biopsies were taken with a cold forceps for histology. Scattered moderate inflammation characterized by erosions was found on the greater curvature of the stomach. Biopsies were taken with a cold forceps for histology. A few sessile polyps with no stigmata of recent bleeding were found in the stomach. The polyp was removed with a cold biopsy forceps. Resection and retrieval were complete. Diffuse mildly erythematous mucosa without active bleeding and with no stigmata of bleeding was found in the duodenal bulb. Biopsies were taken with a cold forceps for histology. Impression: - Medium-sized hiatal hernia. - LA Grade C reflux esophagitis. Biopsied. 6cm length/ extensive, wide open hiatal hernia - Gastritis. Biopsied. - A few gastric polyps. Resected and retrieved. - Erythematous duodenopathy. Biopsied. Recommendation: - Discharge patient to home. - Resume previous diet. - Continue present medications. - Use sucralfate tablets 1 gram PO QID. - Telephone my office for pathology results in 1 week. Procedure Code(s): --- Professional --- 06121, Esophagogastroduodenoscopy, flexible, transoral; with biopsy, single or multiple Diagnosis Code(s): --- Professional --- K44.9, Diaphragmatic hernia without obstruction or gangrene K21.0, Gastro-esophageal reflux disease with esophagitis K29.70, Gastritis, unspecified, without bleeding K31.7, Polyp of stomach and duodenum K31.89, Other diseases of stomach and duodenum K92.0, Hematemesis CPT copyright 2017 [employer]. All rights reserved. The codes documented in this report are preliminary and upon maintenance pipefitter review may be revised to meet current compliance requirements. Dennis Villalba MD 06/24/2019 12:36:34 PM This report has been signed electronically. Number of Addenda: 0 Note Initiated On: 06/24/2019 11:52 AM 06/24/19 1236 Date Dennis Villalba MD [facility] Medical Records Department [address] [place] [address] Colonoscopy Report MR#: [id number] Name:LORI LATHAMRep #:[id number] : 1995 24From: Dennis Villalba MD PCP:Mp Ashford MD [place] [facility] [place] Name: Lori Latham Procedure Date: 06/24/2019 12:18 PM Date of : 1995 Age: 24 Procedure: Colonoscopy Indications: Rectal bleeding Providers: Dennis Villalba MD Referring MD: Mp Ashford Medicines: See the Anesthesia note for documentation of the administered medications Patient Profile: Last Colonoscopy: none. The patient's first colonoscopy is today. Complications: No immediate complications. Procedure: Pre-Anesthesia Assessment: - Prior to the procedure, a History and Physical was performed, and patient medications and allergies were reviewed. The patient's tolerance of previous anesthesia was also reviewed. The risks and benefits of the procedure and the sedation options and risks were discussed with the patient. All questions were answered, and informed consent was obtained. Prior Anticoagulants: The patient has taken no previous anticoagulant or antiplatelet agents. ASA Grade Assessment: II - A patient with mild systemic disease. After reviewing the risks and benefits, the patient was deemed in satisfactory condition to undergo the procedure. After I obtained informed consent, the scope was passed under direct vision. Throughout the procedure, the patient's blood pressure, pulse, and oxygen saturations were monitored continuously. The Colonoscope was introduced through the anus and advanced to the cecum, identified by appendiceal orifice and ileocecal valve. The colonoscopy was performed without difficulty. The patient tolerated the procedure well. The quality of the bowel preparation was good. The ileocecal valve and the appendiceal orifice were photographed. Scope In: 12:20:25 PM Scope Withdrawal Time 0 hours 6 minutes 57 seconds Scope Out: 12:29:17 PM Total Procedure Duration Time 0 hours 8 minutes 52 seconds Findings: The digital rectal exam findings include non-thrombosed external hemorrhoids, non-thrombosed internal hemorrhoids and internal hemorrhoids that prolapse with straining, but spontaneously regress to the resting position (Grade II). Pertinent negatives include normal sphincter tone. Scattered diverticula were found in the sigmoid colon and descending colon. The exam was otherwise without abnormality. Biopsies for histology were taken with a cold forceps from the entire colon for evaluation of microscopic colitis. Impression: - Non-thrombosed external hemorrhoids, non-thrombosed internal hemorrhoids and internal hemorrhoids that prolapse with straining, but spontaneously regress to the resting position (Grade II) found on digital rectal exam. - Diverticulosis in the sigmoid colon and in the descending colon. - The examination was otherwise normal. - Biopsies were taken with a cold forceps from the entire colon for evaluation of microscopic colitis. Recommendation: - Discharge patient to home. - Resume previous diet. - Continue present medications. - Telephone my office for pathology results in 1 week. - Repeat colonoscopy at age 48. Procedure Code(s): --- Professional --- 84031, Colonoscopy, flexible; with biopsy, single or multiple Diagnosis Code(s): --- Professional --- K64.1, Second degree hemorrhoids K64.4, Residual hemorrhoidal skin tags K62.5, Hemorrhage of anus and rectum K57.30, Diverticulosis of large intestine without perforation or abscess without bleeding CPT copyright 2017 [employer]. All rights reserved. The codes documented in this report are preliminary and upon maintenance pipefitter review may be revised to meet current compliance requirements. Dennis Villalba MD 06/24/2019 12:39:00 PM This report has been signed electronically. Number of Addenda: 0 Note Initiated On: 06/24/2019 12:18 PM 06/24/19 1239 Date Dennis Villalba MD ROS General General: Yes weight change and fatigue; no appetite, colon cancer, breast cancer or weakness HEENT HEENT: No difficulty swallowing, eye injury, eye surgery, swollen glands or hoarseness Endo Endocrine: No thyroid disease, diabetes mellitus, thyroid cancer, Hair loss, heat intolerance or cold intolerance Skin Skin: No rash or changing moles Breast Breast: No left breast lump, right breast lump, nipple discharge, breast pain, abnormal mammogram, abnormal US or breast enlargement Musc Musculoskeletal: No back problems, arthritis, rheumatoid arthritis, gout or joint pain Cardio Cardiovascular: No murmur, pacemaker, heart disease, atrial fibrillation, high blood pressure, heart attack, heart stent, palpitations, shortness of breat with exertion or chest pain Psych Psychiatric: Yes depression and anxiety; no hearing voices Resp Respiratory: No shortness of breath, No sleep apnea, No cough, No COPD, No asthma, No emphysema, No wheezing Gastro Gastrointestinal: Yes abdominal pain, Yes nausea or vomiting, Yes diarrhea, No constipation, Yes blood in stool, Yes acid reflux, No hemorrhoids, No ulcers, No gallbladder problem, No black,tarry stools Valentin Hematologic: No blood thinners, No blood disorders, No bleeding, No anemia, No blood clots Neuro Neurologic: No weakness Exam Const General: cooperative, healthy appearing, comfortable, no acute distress [facility] Head: normal to inspection Eyes General: appearance normal, both eyes and all related structures Neck Neck: normal visual inspection Neck mass: No Chest Breast Palpation: No nipple discharge Resp Effort & Inspection: normal respiratory effort Auscultation: clear to auscultation bilaterally Cardio Rate: regular rate Rhythm: regular rhythm Heart Sounds: no murmurs GI Inspection: normal to inspection Palpation: soft Auscultation: normal bowel sounds Skin General: no rashes or lesions noted Neuro General: no focal motor deficits, CN's II-XI intact bilaterally Extrem General: normal to inspection Psych Appearance: grossly normal Affect: normal affect Assessment & Plan Problems 1. Abdominal pain, unspecified abdominal location R10.9 2. Gastroesophageal reflux disease with esophagitis K21.0 3. Acute gastritis without hemorrhage, unspecified gastritis type K29.[address] Villalba will plan to perform a laparoscopic toupet with full 270 degree wrap. Procedure details, risks and benefits have been reviewed. Patient has had the opportunity to ask and have questions answered. Patient verbally understands and agrees with the plan. Post-op instructions were given to the mother. Patient will need to continue with an H2 rayray even after the procedure. Coding Level of Care Code No Charge Diagnoses Abdominal pain, unspecified abdominal location R10.9 ??Abdominal location: unspecified location Gastroesophageal reflux disease with esophagitis K21.0 ??Esophagitis presence: with esophagitis Acute gastritis without hemorrhage, unspecified gastritis type K29.00 ??Gastritis type: unspecified gastritis ??Chronicity: acute ??Gastritis bleeding: without bleeding Comment Update H&P 09/15/19 1604 <Electronically signed by Pavithra tran PA-C> Date _ Pavithra Arciniega PA-C
[2019-09-15 15:22] VITALS: BMI 29.2
--- NOTE | 2019-09-15 16:11 | EKG12_ITS ---
Test Reason : PRE OP Blood Pressure : / mmHG Vent. Rate : 056 BPM Atrial Rate : 056 BPM P-R Int : 170 ms QRS Dur : 084 ms QT Int : 390 ms P-R-T Axes : 034 049 053 degrees QTc Int : 376 ms Sinus bradycardia Otherwise normal ECG Confirmed by GUADALUPE SKY, FRANCK ([id number]), editor book DENISE MARIANO ([id number]) on 09/17/2019 1:05:47 PM Referred By: Dennis Villalba Confirmed By:SONALI BUTCHER MD
[2019-09-15 17:26] LABS: Hematocrit 44.8 % (40-54); Mean Corp Hgb Conc 33.5 g/dL (32-36); Mean Corpuscular Hgb 29.6 pg (27.0-32.0); Mean Corpuscular Volume 88.5 fL (80-94); Mean Platelet Vol. 9.5 fl (6.2-12.0); Platelet Count 270 K/mm3 (150-450); RBC Distribution Width CV 11.9 % (11.6-14.6); RBC Distribution Width SD 38.2 fl (35.1-43.9); Red Blood Count 5.06 M/mm3 (4.6-6.2); White Blood Count 5.9 K/mm3 (4.4-11.0)
[2019-09-15 17:44] LABS: Anion Gap 2 (5-15); BUN 10 mg/dL (7-18); BUN/Creat Ratio 10.8 RATIO (10-20); Calcium,Total 8.7 mg/dL (8.5-10.1); Chloride 112 mmol/L (98-107); Creatinine, Serum 0.92 mg/dL (0.70-1.30); EST Glomerular Filtration Rate 105 mL/min (>60); Est Glom Filt Rate - Afr Amer 127 mL/min (>60); Glucose 95 mg/dL (74-106); Sodium Level 143 mmol/L (136-145)
[2019-09-20 05:56] VITALS: BP 131/90; PULSE 73; RESP 16; TEMP 36.8; O2SAT 98; BMI 29.4
[2019-09-20] MEDS: Lactated Ringers 1,000 ML 100 ML IV (06:20)
--- NOTE | 2019-09-20 06:37 | PCM.HP.BLA ---
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 Required: No Is patient in pain?: No Allergies No Known Allergies Allergy (Verified 09/15/19 15:23) Medications Duloxetine Hcl [Cymbalta] 60 mg PO DAILY 10/14/18 [History Confirmed 09/15/19] Omeprazole 40 mg PO DAILY 06/21/19 [History Confirmed 09/15/19] sucralfate 100 mg/mL oral suspension 1 g PO 4X/DAY #360 ml 08/12/19 [Rx Confirmed 09/15/19] aripiprazole 5 mg tablet 10 mg PO DAILY tab 09/15/19 [History Confirmed 09/15/19] FOR[facility]LY [facility] Medical History Gastritis (Acute) Abdominal pain (Acute) Weight loss, non-intentional (Acute) Rectal bleeding (Acute) Hematemesis of unknown cause (Acute) Acid reflux (Acute) Blood in stool (Acute) Nausea (Acute) Abdominal pain (Acute) Anxiety (Acute) Depression (Acute) Surgical History History of esophagogastroduodenoscopy (EGD) (Acute) Hx of colonoscopy (Acute) Family History Mother Hypertension Father Hypertension Social History (Updated 09/15/19 @ 16:04 by Pavithra Arciniega PA-C) Smoking Status: Never smoker alcohol intake: never substance use type: does not use what type of physical activity do you participate in: none frequency: does not exercise seatbelt use: always HPI HPI HPI: LORI LATHAM, is a 24 M who presents to the office today for HPI HPI Surgical H&P: Yes HPI: LORI LATHAM, is a 24 M who presents to the office today for an update history and physical. Patient denies recent hospitalizations or illnesses. Patient denies previous complications with anesthesia. He denies cardiac history. Patient's previous history per Dr. Villalba: LORI LATHAM, is a 24 M who presents to the office today for ongoing surgical follow-up regarding severe reflux disease and active gastritis. He is currently managed with omeprazole therapy 40 mg daily and sucralfate 4 times daily. States he still has some epigastric discomfort. He states that he has been trying to be more compliant. In additional to the information below on July 29, 2019 had esophageal manometry performed. The LES mean pressure was 8.4 with normal being 13-43. 10 swallows were analyzed. Several swallows demonstrated reflux of bolus after clearance requiring a second swallow to clear. There was a very low LES tone throughout the entire procedure. Contractile strength was felt to be normal. Prior to the patient's esophageal manometry my office notes reflect the following: LORI LATHAM, is a 24 M who presents to the office today for surgical consultation regarding hematemesis and rectal bleeding and epigastric pain. On June 24, 2019 I performed a combined upper and lower endoscopy for him. Duodenal biopsies showed some mild mucosal congestion. Antral biopsies mild gastritis. On the greater curvature there was an area of inflammation consistent with mild chronic active inflammation. There were fundic gland polyps that were benign. The distal esophagus was noted to be wide open with hiatal hernia. There was focal ulceration of the mucosa with acute and chronic inflammation of reflux. No fungus identified. H. pylori was negative. Colonoscopy was not remarkable with random colonic biopsies unremarkable and normal. It is felt that the patient's epigastric pain is secondary to gastritis medium-sized hiatal hernia active reflux esophagitis and lack of tone of the LES. He was supposed to been on omeprazole therapy 40 mg daily but appears that this is of variable compliance. At the time of his upper endoscopy I requested that he add sucralfate 1 g p.o. 4 times daily. He has been only partially compliant. He is still complaining of epigastric pain. Regarding the rectal bleeding symptoms I felt that it was likely hemorrhoidal in nature. He did have some diverticulosis. Nonoperative conservative measures recommended. My original office visit notes reflect the following history of complaint: LORI LATHAM, is a 24 M who presents to the office today for surgical consultation regarding hematemesis and bright red rectal bleeding. Patient was referred by his primary care physician Dr. Mp Ashford and a written copy of my surgical consult and recommendations will be returned to him. The patient presented to Dr. Martínez Lawson on May 26, 2019. The patient is referred to me by Dr Martínez Lawson and a written copy of my surgical consult will be returned to him. His complaint at that time was bloating diarrhea reflux symptoms rectal bleeding. He claims that for at least a month or so he is been unwell. He has been started on omeprazole a month ago but continues to have nonspecific epigastric mid abdominal pain. There are no particular foods that cause troubles. He does smoke marijuana to assist with the discomfort. There is a family history with a uncle who had colitis. The patient is currently employed at [employer] in [place]. It is of additional note that he feels that he has had approximately a 20 pound weight loss. As of May 03, 2019 white blood cell count was 4.7 with a hemoglobin 13.9 and hematocrit of 41.7 and platelet count 241,000. BUN is 10 and creatinine 0.99. Liver function tests were normal. H. pylori antibody IgG was 0.36 which is normal [facility] Medical Records Department [address] [place] [address] EGD Report MR#: [id number] Name:LORI LATHAMRep #:[id number] : 1995 24From: Dennis Villalba MD PCP:Mp Ashford MD Status:[facility] Patient Name: Lori Latham Procedure Date: 06/24/2019 11:52 AM Date of : 1995 Age: 24 Procedure: Upper GI endoscopy Indications: Hematemesis Providers: Dennis Villalba MD Referring MD: Mp Ashford Medicines: See the Anesthesia note for documentation of the administered medications Complications: No immediate complications. Procedure: Pre-Anesthesia Assessment: - Prior to the procedure, a History and Physical was performed, and patient medications and allergies were reviewed. The patient's tolerance of previous anesthesia was also reviewed. The risks and benefits of the procedure and the sedation options and risks were discussed with the patient. All questions were answered, and informed consent was obtained. Prior Anticoagulants: The patient has taken no previous anticoagulant or antiplatelet agents. ASA Grade Assessment: II - A patient with mild systemic disease. After reviewing the risks and benefits, the patient was deemed in satisfactory condition to undergo the procedure. After obtaining informed consent, the endoscope was passed under direct vision. Throughout the procedure, the patient's blood pressure, pulse, and oxygen saturations were monitored continuously. The gastroscope was introduced through the mouth, and advanced to the second part of duodenum. The upper GI endoscopy was accomplished without difficulty. The patient tolerated the procedure well. Scope In: 12:07:51 PM Scope Out: 12:16:48 PM Total Procedure Duration Time 0 hours 8 minutes 57 seconds Findings: A medium-sized hiatal hernia was present. LA Grade C (one or more mucosal breaks continuous between tops of 2 or more mucosal folds, less than 75% circumference) esophagitis with bleeding was found 34 to 38 cm from the incisors. Biopsies were taken with a cold forceps for histology. Scattered moderate inflammation characterized by erosions was found on the greater curvature of the stomach. Biopsies were taken with a cold forceps for histology. A few sessile polyps with no stigmata of recent bleeding were found in the stomach. The polyp was removed with a cold biopsy forceps. Resection and retrieval were complete. Diffuse mildly erythematous mucosa without active bleeding and with no stigmata of bleeding was found in the duodenal bulb. Biopsies were taken with a cold forceps for histology. Impression: - Medium-sized hiatal hernia. - LA Grade C reflux esophagitis. Biopsied. 6cm length/ extensive, wide open hiatal hernia - Gastritis. Biopsied. - A few gastric polyps. Resected and retrieved. - Erythematous duodenopathy. Biopsied. Recommendation: - Discharge patient to home. - Resume previous diet. - Continue present medications. - Use sucralfate tablets 1 gram PO QID. - Telephone my office for pathology results in 1 week. Procedure Code(s): --- Professional --- 91676, Esophagogastroduodenoscopy, flexible, transoral; with biopsy, single or multiple Diagnosis Code(s): --- Professional --- K44.9, Diaphragmatic hernia without obstruction or gangrene K21.0, Gastro-esophageal reflux disease with esophagitis K29.70, Gastritis, unspecified, without bleeding K31.7, Polyp of stomach and duodenum K31.89, Other diseases of stomach and duodenum K92.0, Hematemesis CPT copyright 2017 [employer]. All rights reserved. The codes documented in this report are preliminary and upon local tanker truck driver review may be revised to meet current compliance requirements. Dennis Villalba MD 06/24/2019 12:36:34 PM This report has been signed electronically. Number of Addenda: 0 Note Initiated On: 06/24/2019 11:52 AM 06/24/19 1236 Date Dennis Villalba MD [facility] Medical Records Department [address] [place] [address] Colonoscopy Report MR#: [id number] Name:LORI LATHAMRep #:[id number] : 1995 24From: Dennis Villalba MD PCP:Mp Ashford MD Status:[facility] Patient Name: Lori Latham Procedure Date: 06/24/2019 12:18 PM Date of : 1995 Age: 24 Procedure: Colonoscopy Indications: Rectal bleeding Providers: Dennis Villalba MD Referring MD: Mp Ashford Medicines: See the Anesthesia note for documentation of the administered medications Patient Profile: Last Colonoscopy: none. The patient's first colonoscopy is today. Complications: No immediate complications. Procedure: Pre-Anesthesia Assessment: - Prior to the procedure, a History and Physical was performed, and patient medications and allergies were reviewed. The patient's tolerance of previous anesthesia was also reviewed. The risks and benefits of the procedure and the sedation options and risks were discussed with the patient. All questions were answered, and informed consent was obtained. Prior Anticoagulants: The patient has taken no previous anticoagulant or antiplatelet agents. ASA Grade Assessment: II - A patient with mild systemic disease. After reviewing the risks and benefits, the patient was deemed in satisfactory condition to undergo the procedure. After I obtained informed consent, the scope was passed under direct vision. Throughout the procedure, the patient's blood pressure, pulse, and oxygen saturations were monitored continuously. The Colonoscope was introduced through the anus and advanced to the cecum, identified by appendiceal orifice and ileocecal valve. The colonoscopy was performed without difficulty. The patient tolerated the procedure well. The quality of the bowel preparation was good. The ileocecal valve and the appendiceal orifice were photographed. Scope In: 12:20:25 PM Scope Withdrawal Time 0 hours 6 minutes 57 seconds Scope Out: 12:29:17 PM Total Procedure Duration Time 0 hours 8 minutes 52 seconds Findings: The digital rectal exam findings include non-thrombosed external hemorrhoids, non-thrombosed internal hemorrhoids and internal hemorrhoids that prolapse with straining, but spontaneously regress to the resting position (Grade II). Pertinent negatives include normal sphincter tone. Scattered diverticula were found in the sigmoid colon and descending colon. The exam was otherwise without abnormality. Biopsies for histology were taken with a cold forceps from the entire colon for evaluation of microscopic colitis. Impression: - Non-thrombosed external hemorrhoids, non-thrombosed internal hemorrhoids and internal hemorrhoids that prolapse with straining, but spontaneously regress to the resting position (Grade II) found on digital rectal exam. - Diverticulosis in the sigmoid colon and in the descending colon. - The examination was otherwise normal. - Biopsies were taken with a cold forceps from the entire colon for evaluation of microscopic colitis. Recommendation: - Discharge patient to home. - Resume previous diet. - Continue present medications. - Telephone my office for pathology results in 1 week. - Repeat colonoscopy at age 48. Procedure Code(s): --- Professional --- 59568, Colonoscopy, flexible; with biopsy, single or multiple Diagnosis Code(s): --- Professional --- K64.1, Second degree hemorrhoids K64.4, Residual hemorrhoidal skin tags K62.5, Hemorrhage of anus and rectum K57.30, Diverticulosis of large intestine without perforation or abscess without bleeding CPT copyright 2017 [employer]. All rights reserved. The codes documented in this report are preliminary and upon local tanker truck driver review may be revised to meet current compliance requirements. Dennis Villalba MD 06/24/2019 12:39:00 PM This report has been signed electronically. Number of Addenda: 0 Note Initiated On: 06/24/2019 12:18 PM 06/24/19 1239 Date Dennis Villalba MD ROS General General: Yes weight change and fatigue; no appetite, colon cancer, breast cancer or weakness HEENT HEENT: No difficulty swallowing, eye injury, eye surgery, swollen glands or hoarseness Endo Endocrine: No thyroid disease, diabetes mellitus, thyroid cancer, Hair loss, heat intolerance or cold intolerance Skin Skin: No rash or changing moles Breast Breast: No left breast lump, right breast lump, nipple discharge, breast pain, abnormal mammogram, abnormal US or breast enlargement Musc Musculoskeletal: No back problems, arthritis, rheumatoid arthritis, gout or joint pain Cardio Cardiovascular: No murmur, pacemaker, heart disease, atrial fibrillation, high blood pressure, heart attack, heart stent, palpitations, shortness of breat with exertion or chest pain Psych Psychiatric: Yes depression and anxiety; no hearing voices Resp Respiratory: No shortness of breath, No sleep apnea, No cough, No COPD, No asthma, No emphysema, No wheezing Gastro Gastrointestinal: Yes abdominal pain, Yes nausea or vomiting, Yes diarrhea, No constipation, Yes blood in stool, Yes acid reflux, No hemorrhoids, No ulcers, No gallbladder problem, No black,tarry stools Valentin Hematologic: No blood thinners, No blood disorders, No bleeding, No anemia, No blood clots Neuro Neurologic: No weakness Exam Const General: cooperative, healthy appearing, comfortable, no acute distress [facility] Head: normal to inspection Eyes General: appearance normal, both eyes and all related structures Neck Neck: normal visual inspection Neck mass: No Chest Breast Palpation: No nipple discharge Resp Effort & Inspection: normal respiratory effort Auscultation: clear to auscultation bilaterally Cardio Rate: regular rate Rhythm: regular rhythm Heart Sounds: no murmurs GI Inspection: normal to inspection Palpation: soft Auscultation: normal bowel sounds Skin General: no rashes or lesions noted Neuro General: no focal motor deficits, CN's II-XI intact bilaterally Extrem General: normal to inspection Psych Appearance: grossly normal Affect: normal affect Assessment & Plan Problems 1. Abdominal pain, unspecified abdominal location R10.9 2. Gastroesophageal reflux disease with esophagitis K21.0 3. Acute gastritis without hemorrhage, unspecified gastritis type K29.[address] Villalba will plan to perform a laparoscopic toupet with full 270 degree wrap. Procedure details, risks and benefits have been reviewed. Patient has had the opportunity to ask and have questions answered. Patient verbally understands and agrees with the plan. Post-op instructions were given to the mother. Patient will need to continue with an H2 rayray even after the procedure. Coding Level of Care Code No Charge Diagnoses Abdominal pain, unspecified abdominal location R10.9 ??Abdominal location: unspecified location Gastroesophageal reflux disease with esophagitis K21.0 ??Esophagitis presence: with esophagitis Acute gastritis without hemorrhage, unspecified gastritis type K29.00 ??Gastritis type: unspecified gastritis ??Chronicity: acute ??Gastritis bleeding: without bleeding Comment Update H&P 09/15/19 8584 <Electronically signed by Pavithra Arciniega PA-C> Date Pavithra Arciniega PA-C Cosigner Signature: Date (if applicable) CC: ~ I have re-examined the patient. There are no clinical changes since date of exam.
== END ==
LOC: AC 05:58 → PAT 10-22 10:58
PROVIDERS: PCP Family Medicine; Referring Provider Surgery; Visit Provider Surgery
DX: Z01.810 Encounter for preprocedural cardiovascular examination (principal); Z01.818 Encounter for other preprocedural examination
CPT/HCPCS: 36415; 80048; 85027; 93005; J7120

== ENCOUNTER 2020-04-01 22:34 | Emergency (ER) | payer OTHER, MEDICAID, SELFPAY ==
[2020-02-17 09:07] VITALS: BMI 29.4
[2020-04-01 22:35] VITALS: BP 149/98; PULSE 91; RESP 18; TEMP 36.3; O2SAT 99; BMI 29.5
--- NOTE | 2020-04-02 00:12 | ED.VIS.GI ---
History of Present Illness Chief Complaint: Abd Pain Informant: Patient, Family - Abdominal Pain/Flank Pain Onset: Today - around 12-14 hrs or so Context: Gradual Onset Timing: Continuous Quality: Aching Location: Diffuse Current Severity: Moderate Maximum Severity: Moderate Worsened by: Nothing Relieved by: Remaining Still, - - hasn't tried any medications/treatments - Nausea/Vomiting/Emesis GI Symptom: Negative for: Nausea, Vomiting - Diarrhea/Melena/Hematochezia GI Symptom: Negative for: Diarrhea, Melena, Hematochezia Associated Symptoms: Negative for: Dysuria, Frequency, Hematuria, Urgency Narrative: Patient presenting with diffuse abdominal discomfort that radiates into his back diffusely. He has had some mild versions of this before but nothing this severe or persistent, although he has not tried any medications to try to abort it. He has severe GERD, and is scheduled for a Neto fundoplication in 2 weeks. He is compliant with his omeprazole and takes medications for anxiety and depression. - Past Medical History (1) Acid reflux Status: Chronic (2) Anxiety Status: Chronic (3) Depression Status: Chronic Past Medical History - Allergies and Home Meds Allergies/Adverse Reactions: Allergies No Known Allergies Allergy (Verified 04/01/20 22:37) Primary Care Physician: Mp Ashford MD [Primary Care Provider] - Lives: With Family Smoking Status: Never smoker Alcohol: None Review of Systems General: Denies: Chills, Fever, Sweats Eyes: Denies: Visual changes - bilaterally, Diplopia ENT: Denies: Rhinorrhea, Sore throat Cardiovascular: Denies: Chest pain, Palpitations Respiratory: Denies: Dyspnea, Cough, Dyspnea on exertion Gastrointestinal: Reports: Abdominal pain. Denies: Nausea, Vomiting, Diarrhea, Melena, Hematochezia Genitourinary: Denies: Dysuria, Hematuria, Frequency Musculoskeletal: Reports: Back pain. Denies: Myalgias, Neck pain, Swelling, Extremity Pain Skin: Denies: Rash, Wounds Neurological: Denies: Headache, Weakness, Numbness Physical Exam Vital Signs/Narrative: Vital Signs Temp Pulse Resp BP Pulse Ox 04/01/20 22:35 97.4 F L 91 18 149/98 H 99 Inital Vital Signs reviewed: Yes General: Well nourished, Well developed, No Acute Distress Head: Normocephalic, Atraumatic Eyes: Perrl, EOMI ENT: Moist mucous membranes, No rhinorrhea Neck: Supple, Nontender Cardiovascular: Regular rate, Regular rhythm, No murmurs Respiratory: No distress, CTA bilaterally, Chest nontender Abdomen: Soft, Nontender, Nondistended, Normal bowel sounds Back: Nontender, Normal Inspection. Negative for: CVA tenderness Extremities: Nontender, No edema Skin: Normal color, No rash Neurological: Alert, Oriented x3, Cranial nerves II-XII grossly intact, Normal Strength, Normal Sensation Psychological: Normal affect, Normal Mood Diagnostic/Tx/Re-eval - Medical Decision Making I offered GI cocktail and dicyclomine to the patient for symptoms, and we discussed work-up. He really does not want it, and I am fine with that. I went to reevaluate him and he and his mother had already left. Disposition: Left prior to discharge ED Disposition - Plan for ED Patient: Disposition: Home or Assisted Living Diagnosis: Diffuse abdominal pain, GERD (gastroesophageal reflux disease) Instructions: Medications for GERD Referrals: Mp Ashford MD [Primary Care Provider] - As Needed
[2020-04-02] MEDS: Mag Hydrox/Al Hydrox/Simeth 30 ML UDC PO (00:17)
[2020-04-02] MEDS: Dicyclomine 10 MG Capsule 20 MG PO (00:17)
== END 2020-04-02 01:22 | disposition home or self-care (01) ==
PROVIDERS: Emergency Provider Emergency Medicine; PCP Family Medicine
DX: R10.84 Generalized abdominal pain (principal); K21.9 Gastro-esophageal reflux disease without esophagitis; F32.9 Major depressive disorder, single episode, unspecified; F41.9 Anxiety disorder, unspecified; Z79.899 Other long term (current) drug therapy
CPT/HCPCS: 99282

== ENCOUNTER → 2020-04-04 14:39 | Outpatient (CLI) | payer OTHER, MEDICAID, SELFPAY ==
[2020-04-04 14:14] VITALS: BMI 29.5
[2020-04-04 15:19] LABS: Absolute Lymphocyte Count 2.01 X10^3/uL (0.83-4.51); Absolute Neutrophil Count 4.4 X10^3/uL (2.0-7.7); Basophil# 0.04 X10^3/uL; Basophil% 0.6 % (0-1); Eosinophil# 0.18 X10^3/uL; Eosinophils% 2.6 % (0-5); Hematocrit 44.3 % (40-54); Hemoglobin 14.6 g/dL (13.0-16.5); Lymphocyte # 2.01 X10^3/ul (4.0); Lymphocyte % 28.6 % (19-41); Mean Corpuscular Hgb 28.5 pg (27.0-32.0); Mean Corpuscular Volume 86.4 fL (80-94); Mean Platelet Vol. 9.3 fl (6.2-12.0); Monocyte# 0.43 X10^3/uL; Monocyte% 6.1 % (0-10); NRBC Flagged by Analyzer 0 % (0-5); Neutrophil # 4.35 X10^3/uL (2.7-7.7); Neutrophil % 61.8 % (47-70); Platelet Count 273 K/mm3 (150-450); RBC Distribution Width CV 12.1 % (11.6-14.6); RBC Distribution Width SD 38.4 fl (35.1-43.9); Red Blood Count 5.13 M/mm3 (4.6-6.2)
[2020-04-04 15:27] LABS: Erythrocyte Sedimentation Rate 6 mm/hr (0-15)
[2020-04-04 15:35] LABS: AST(SGOT) 15 U/L (15-37); Alanine Aminotransfer ALT/SGPT 36 U/L (16-61); Albumin, Serum 3.6 g/dL (3.2-5.0); Alkaline Phosphatase 70 U/L (45-117); Anion Gap 2 (5-15); BUN 13 mg/dL (7-18); BUN/Creat Ratio 12.5 RATIO (10-20); CRP 3.28 mg/L (0.0-3.0); Chloride 111 mmol/L (98-107); Creatinine, Serum 1.04 mg/dL (0.70-1.30); EST Glomerular Filtration Rate 91 mL/min (>60); Est Glom Filt Rate - Afr Amer 110 mL/min (>60); Globulin 3.7 g/dL (2.2-4.2); Glucose 95 mg/dL (74-106); Lipase 100 U/L (73-393); Potassium 3.9 mmol/L (3.5-5.1); Protein, Total 7.3 g/dL (6.4-8.2); Sodium Level 142 mmol/L (136-145)
[2020-04-04 23:11] LABS: Xtra Tube EP Lab EXTRA TUBE
== END ==
PROVIDERS: PCP Family Medicine; Referring Provider Surgery; Visit Provider Surgery
DX: K29.70 Gastritis, unspecified, without bleeding (principal); R10.9 Unspecified abdominal pain
CPT/HCPCS: 36415; 80053; 83690; 85025; 85652; 86140

== ENCOUNTER → 2020-04-05 18:23 | Outpatient (CLI) | payer OTHER, MEDICAID, SELFPAY ==
[2020-04-04 14:14] VITALS: BMI 29.5
--- NOTE | 2020-04-05 18:27 | US_ITS ---
STUDY: ABDOMINAL ULTRASOUND - RIGHT UPPER QUADRANT REASON FOR VISIT: Male, 25 years old ABD PAIN-UPPER RADIATES TO BACK TECHNIQUE: Ultrasound evaluation of the right upper quadrant was performed with real-time and static frankel-scale imaging. TECHNICAL QUALITY: Adequate. COMPARISON: None. FINDINGS: Liver: The liver measures 15.4 cm. There is normal echogenicity of the liver. The bile ducts are within normal limits. There is hepatic color flow. The direction of portal flow is hepatopetal. There is no demonstrated mass lesion. Gallbladder: Normal distended gallbladder. The gallbladder wall measures 3 mm. There is a negative sonographic Jackson''s sign. There is no pericholecystic fluid. There appears to be mild biliary sludge but no shadowing stones.. Common Bile Duct (C.B.D.): The common bile duct measures 5 mm. Pancreas: There is suboptimal visualization of pancreas which appears to be grossly within normal limits. If concern for pancreatic disease CT recommended. Right Kidney: Normal size of the right kidney. The right kidney measures 10.5 x 5.3 x 5.7 cm. Normal renal cortex. The right cortex measures 1.6 cm. There is no demonstrated renal mass or cyst. There is no right hydronephrosis. US/Gallbladder IMPRESSION: Contracted thick-walled gallbladder with mild biliary sludge but no shadowing stones or definitive evidence for acute cholecystitis. HIDA scan would be helpful for further evaluation if indicated Limited study of the pancreas which appears to be grossly within normal limits Electronically Signed: Zelalem Varela MD at 19:08 EDT , Service support ,
== END ==
PROVIDERS: PCP Family Medicine; Visit Provider Surgery
DX: R10.11 Right upper quadrant pain (principal)
CPT/HCPCS: 76705

== ENCOUNTER → 2020-04-13 12:56 | Outpatient (CLI) | payer OTHER, MEDICAID, SELFPAY ==
[2020-04-04 14:14] VITALS: BMI 29.5
--- NOTE | 2020-04-13 12:58 | NM_ITS ---
CLINICAL: 25-year-old male with reported history of right upper quadrant abdominal pain. RADIONUCLIDE HEPATOBILIARY SCINTIGRAPHY COMPARISON: Abdominal ultrasound report 04/05/2020 FINDINGS: Following the intravenous administration of 5.5 mCi of 99m Tc Mebrofenin, hepatobiliary images reveal: 1. Relatively prompt and homogeneous radiopharmaceutical concentration is noted by a normal sized liver. No parenchymal defects are identified. 2. Gallbladder activity is identified at 10 minutes post radiopharmaceutical administration. 3. Small intestinal tract is not visualized during 60 minutes of pre-CCK sequential imaging. Small bowel activity is identified following the administration of cholecystokinin. 4. Washout of the radiopharmaceutical by the hepatic parenchyma appears qualitatively normal. Cholecystokinin (0.02 ug/kg) was administered intravenously over a 30-minute period. The post CCK gallbladder ejection fraction calculated at 20 minutes following Cholecystokinin administration was noted to be 12.0 % (normal greater than 35%). NM/Hepatobilliary Img w/Pharm Int IMPRESSION: 1. ABNORMAL 99m Tc Mebrofenin hepatobiliary imaging examination with Cholecystokinin. A. A gallbladder ejection fraction calculated to be less than 35% following the administration of Cholecystokinin is consistent with the presence of functional hepatobiliary disease (gallbladder and/or sphincter of Oddi dyskinesia) and/or organic hepatobiliary disease (chronic acalculous cholecystitis and/or cystic duct syndrome) in patients with intermediate to high pretest likelihoods of hepatobiliary illness. (Heather Catherine et al, Journal of Nuclear Medicine 32:1695, 1991). Electronically Signed: Bassam Zimmer DO at 23:29 EDT Tel , Service support ,
== END ==
PROVIDERS: PCP Family Medicine; Referring Provider Surgery; Visit Provider Surgery
DX: R10.9 Unspecified abdominal pain (principal); R11.0 Nausea
CPT/HCPCS: 78227; A9537; J2805

== ENCOUNTER 2020-04-19 11:56 | Observation (INO) | payer OTHER, MEDICAID, SELFPAY ==
[2020-02-17 09:07] VITALS: BMI 29.4
[2020-04-04 14:14] VITALS: BMI 29.5
[2020-04-19] VITALS (11 sets, daily range): BP systolic 115–168; BP diastolic 58–101; PULSE 70–105; RESP 16–20; TEMP 36.3–37.7; O2SAT 96–99; BMI 30.1
--- NOTE | 2020-04-19 06:02 | EKG12_ITS ---
Test Reason : PRE OP Blood Pressure : / mmHG Vent. Rate : 062 BPM Atrial Rate : 062 BPM P-R Int : 178 ms QRS Dur : 094 ms QT Int : 376 ms P-R-T Axes : 036 039 037 degrees QTc Int : 381 ms Normal sinus rhythm with sinus arrhythmia Nonspecific ST abnormality Abnormal ECG Confirmed by MARKUS SKY, TIMI ([id number]), editorial director WINDY HAYS ([id number]) on 04/20/2020 10:25:18 AM Referred By: Dennis Villalab Confirmed By:TIMI APARICIO MD
[2020-04-19] MEDS: Lactated Ringers 1,000 ML 100 ML IV ×2 (06:30→10:00)
--- NOTE | 2020-04-19 06:39 | PCM.HP.BLA ---
Problem List (1) Acid reflux Status: Chronic Qualifiers: Esophagitis presence: with esophagitis Esophagitis bleeding: without hemorrhage Qualified Code(s): K21.00 - Gastro-esophageal reflux disease with esophagitis, without bleeding (2) Biliary dyskinesia Status: Acute History and Physical Date of Admission: 04/19/20 Intake Visit Reasons: Discuss new symptoms and surgery Chief Complaint: abd pain Magnetizer Required: No Is patient in pain?: Yes (abdominal pain) Allergies No Known Allergies Allergy (Verified 04/04/20 14:13) Medications Duloxetine Hcl [Cymbalta] 60 mg PO DAILY 10/14/18 [History Confirmed 04/04/20] Omeprazole 40 mg PO DAILY 06/21/19 [History Confirmed 04/04/20] sucralfate 100 mg/mL oral suspension 1 g PO 4X/DAY #360 ml 08/12/19 [Rx Confirmed 04/04/20] aripiprazole 5 mg tablet 10 mg PO DAILY tab 09/15/19 [History Confirmed 04/04/20] PFSH Medical History Gastritis (Acute) Abdominal pain (Acute) Weight loss, non-intentional (Acute) Rectal bleeding (Acute) Hematemesis of unknown cause (Acute) Acid reflux (Chronic) Blood in stool (Acute) Nausea (Acute) Abdominal pain (Acute) Anxiety (Chronic) Depression (Chronic) Surgical History History of esophagogastroduodenoscopy (EGD) (Acute) Hx of colonoscopy (Acute) Family History Mother Hypertension Father Hypertension Social History (Updated 04/04/20 @ 15:[address] Dennis Villalba MD) Smoking Status: Current every day smoker alcohol intake: never substance use type: does not use what type of physical activity do you participate in: none frequency: does not exercise seatbelt use: always HPI HPI HPI: LORI BELL, is a 25 M who presents to the office today for surgical consultation regarding an episode severe abdominal pain with radiation to the back. The patient describes an episode of severe epigastric and bilateral subcostal pain with radiation to his back. It was sharp mostly constant somewhat waxed and waned. He has known gastritis but he claims he has been continuously on his omeprazole therapy. He claims that he has not been using the additional Carafate that was prescribed however that when he was using it that he noticed no significant improvement. This pain was severe enough that he presented to the [facility] emergency room on April 02, 2020. No laboratory or imaging was obtained at that time. He received a GI cocktail. He describes to me that that made minimal improvement. Because of the lateness of the hour and the lack of prompt attention the patient and his mother elected to leave. He states that he is been an ongoing pain since that time. He states that he has not been taking any eroc-oss-xvsbvly pain medicine. He claims that there is no change with eating. Eating does not improve or worsen his discomfort. He claims that there is nothing in particular that he can use or take or do that alters the discomfort. He claims he has had no history of back disc disease. He denies any hematuria he has had no history of kidney stones. Claims that he has not had any previous work-up for gallbladder disease. He has not been diagnosed as having irritable bowel syndrome. I have been an extensive evaluation with him for wide open lower esophageal sphincter and reflux esophagitis and in fact he is scheduled for laparoscopic repair of hiatal hernia and a laparoscopic toupet procedure. My previous notes reflect the following. Intake Visit Reasons: Update H&P Hiatal Hernia/Toupet Chief Complaint: discuss surgery Magnetizer Required: No Accompanied by: Mother Is patient in pain?: No Allergies No Known Allergies Allergy (Verified 02/17/20 09:07) Medications Duloxetine Hcl [Cymbalta] 60 mg PO DAILY 10/14/18 [History Confirmed 02/17/20] Omeprazole 40 mg PO DAILY 06/21/19 [History Confirmed 02/17/20] sucralfate 100 mg/mL oral suspension 1 g PO 4X/DAY #360 ml 08/12/19 [Rx Confirmed 02/17/20] aripiprazole 5 mg tablet 10 mg PO DAILY tab 09/15/19 [History Confirmed 02/17/20] [facility] Medical History Gastritis (Acute) Abdominal pain (Acute) Weight loss, non-intentional (Acute) Rectal bleeding (Acute) Hematemesis of unknown cause (Acute) Acid reflux (Acute) Blood in stool (Acute) Nausea (Acute) Abdominal pain (Acute) Anxiety (Acute) Depression (Acute) Surgical History History of esophagogastroduodenoscopy (EGD) (Acute) Hx of colonoscopy (Acute) Family History Mother Hypertension Father Hypertension Social History (Updated 02/17/20 @ 10:[address] Dennis Villalba MD) Smoking Status: Never smoker alcohol intake: never substance use type: does not use what type of physical activity do you participate in: none frequency: does not exercise seatbelt use: always HPI HPI HPI: LORI BELL, is a 24 M who presents to the office today for ongoing surgical consultation regarding consideration for a laparoscopic repair of his hiatal hernia. My previous notes reflect the following interpretation. On upper endoscopy the patient has a wide open distal esophagus and moderate sized hiatal hernia. On today's visit however he shares with me that he frequently gags. Is not clear whether this is reflux or his anxiety causing the gagging. For period of time he was well managed on the 40 mg of omeprazole daily. I did add sucralfate to that. There is a degree of medicine noncompliance. He is anxious about using a proton pump inhibitor long-term. Today was a consultative appointment. I reviewed the results of his esophageal motility exam with the patient and his mother present. It was remarkable during his upper endoscopy how widely patent his EG junction was. He had erosive esophagitis some mild distal gastritis but some active gastritis of the main body of the stomach. He is currently on omeprazole and sucralfate therapy. In detail I have discussed considerations for a surgical reflux procedure. We have discussed the technique, benefit, risks, alternatives. He is 24 years of age. I believe that a laparoscopic repair of his hiatal hernia with a laparoscopic toupet with a full 270 degree wrap would offer him good resolution of his reflux in the least likelihood to cause additional symptomatology. I have stressed the importance however that he would need to be maintained on medication for his gastritis. Hopefully that could be reduced to a H2 rayray. HPI HPI HPI: LORI BELL, is a 24 M who presents to the office today for ROS General General: Yes weight change and fatigue; no appetite, colon cancer, breast cancer or weakness HEENT HEENT: No difficulty swallowing, eye injury, eye surgery, swollen glands or hoarseness Endo Endocrine: No thyroid disease, diabetes mellitus, thyroid cancer, Hair loss, heat intolerance or cold intolerance Skin Skin: No rash or changing moles Breast Breast: No left breast lump, right breast lump, nipple discharge, breast pain, abnormal mammogram, abnormal US or breast enlargement Musc Musculoskeletal: No back problems, arthritis, rheumatoid arthritis, gout or joint pain Cardio Cardiovascular: No murmur, pacemaker, heart disease, atrial fibrillation, high blood pressure, heart attack, heart stent, palpitations, shortness of breat with exertion or chest pain Psych Psychiatric: Yes depression and anxiety; no hearing voices Resp Respiratory: No shortness of breath, No sleep apnea, No cough, No COPD, No asthma, No emphysema, No wheezing Gastro Gastrointestinal: Yes abdominal pain, Yes nausea or vomiting, Yes diarrhea, No constipation, Yes blood in stool, Yes acid reflux, No hemorrhoids, No ulcers, No gallbladder problem, No black,tarry stools Valentin Hematologic: No blood thinners, No blood disorders, No bleeding, No anemia, No blood clots Neuro Neurologic: No weakness Exam Chest Breast Palpation: No nipple discharge Cardio Heart Sounds: no murmurs Assessment & Plan Problems 1. Gastroesophageal reflux disease with esophagitis K21.0 Plan Today was again consultative appointment. We discussed he had some symptoms of gagging we discussed the wide open distal esophagus and absent lower esophageal sphincter tone we discussed that hiatal hernia and plan for partial wrap repair. We discussed potential complications particularly esophageal injury or splenic injury. We discussed his gagging symptoms. Whether this would put the wrap at risk of failure. We additionally discussed Covid-19 and risk of exposure at the hospital. He has had an opportunity to ask and have questions answered. I believe that he would be a good candidate for surgical intervention. His anxiety and gagging could put the wrap at risk but is not clear to me that some of his gagging is not a component of his free reflux. No guarantees of success have been offered. The [facility] currently is reporting a low local incidence. He needs more time to consider his treatment options. He will recontact us as to how we would like to proceed. He was given postoperative dietary and activity instructions for his review. Copy: Dr. Mp Ashford Time spent 20 minutes Dennis Villalba M.D., F.A.C.S. HPI HPI HPI: LORI BELL, is a 25 M who presents to the office today for ROS General General: Yes weight change and fatigue; no appetite, colon cancer, breast cancer or weakness HEENT HEENT: No difficulty swallowing, eye injury, eye surgery, swollen glands or hoarseness Endo Endocrine: No thyroid disease, diabetes mellitus, thyroid cancer, Hair loss, heat intolerance or cold intolerance Skin Skin: No rash or changing moles Breast Breast: No left breast lump, right breast lump, nipple discharge, breast pain, abnormal mammogram, abnormal US or breast enlargement Musc Musculoskeletal: No back problems, arthritis, rheumatoid arthritis, gout or joint pain Cardio Cardiovascular: No murmur, pacemaker, heart disease, atrial fibrillation, high blood pressure, heart attack, heart stent, palpitations, shortness of breat with exertion or chest pain Psych Psychiatric: Yes depression and anxiety; no hearing voices Resp Respiratory: No shortness of breath, No sleep apnea, No cough, No COPD, No asthma, No emphysema, No wheezing Gastro Gastrointestinal: Yes abdominal pain, Yes nausea or vomiting, Yes diarrhea, No constipation, Yes blood in stool, Yes acid reflux, No hemorrhoids, No ulcers, No gallbladder problem, No black,tarry stools Valentin Hematologic: No blood thinners, No blood disorders, No bleeding, No anemia, No blood clots Neuro Neurologic: No weakness Exam Chest Breast Palpation: No nipple discharge Cardio Heart Sounds: no murmurs Assessment & Plan Problems 1. Epigastric pain R10.13 Plan The cause of this severe epigastric bilateral subcostal pain with radiation to his back is not clear. I was very specific and cautionary with the patient today. The proposed surgery only will improve reflux symptoms. He is well aware that it will do nothing to improve abdominal pain or pain radiating to his back. I now have concerns that he has potential other etiology to this pain and could be gallbladder in nature. Etiology seems unclear. This does not seem to correlate well with simple gastroesophageal reflux disease. Not sure whether this could be gallbladder or possible renal. I recommend that we obtain a complete metabolic profile and a CBC with differential and a CRP and an ESR and a lipase and a urinalysis and a gallbladder ultrasound. If the gallbladder ultrasounds not remarkable then I recommend a hepatobiliary scan. He is aware of the current recommendations. He is aware that if need be I will place his reflux surgery on hold. He is aware that I diagnosis would not likely be made at the time of surgery. He is aware that an etiology needs to be determined prior. I will not recommend or prescribe narcotic pain treatment at this time as the etiology to this discomfort is unclear. It may very well be that the patient has irritable bowel syndrome. I have also discussed this with him. It is a diagnosis of exclusion. He may therefore require medical or GI treatment for that. He has had an opportunity to ask and have questions answered. We will pursue the testing as noted. Copy Dr. Mp Villalba M.D., F.A.C.S. The patient had an abnormal hepatobiliary scan with an ejection fraction of only 12%. This is felt to correlate well with his complaint of epigastric right upper quadrant pain. In addition to that he has the gastroesophageal reflux disease. He presents today for anticipated laparoscopic repair of his hiatal hernia with a laparoscopic toupet procedure and if appropriate I anticipate proceeding with a laparoscopic cholecystectomy with selective cholangiography. The patient and his mother are aware of technique, benefit, risk, alternatives. He has had an opportunity to ask and have questions answered. We will proceed as noted. Dennis Villalba M.D., F.A.C.S.
--- NOTE | 2020-04-19 06:58 | DCINST_ITS ---
Additional Instructions: Please refer to the preprinted instructions regarding activity and diet Allergies/Adverse Reactions: Allergies No Known Allergies Allergy (Verified 04/19/20 06:07) Medications to take at Discharge Duloxetine Hcl [Cymbalta] 60 mg PO DAILY 10/14/18 Omeprazole 40 mg PO DAILY 06/21/19 sucralfate 100 mg/mL oral suspension 1 g PO 4X/DAY #360 ml 08/12/19 aripiprazole 5 mg tablet 10 mg PO DAILY tab 09/15/19 Primary Care Physician: Mp Ashford MD [Primary Care Provider] - Test Results: Test results from this visit will be discussed in further detail at your follow- up appointment, if applicable. Please Follow Up With: Dennis Villalba MD - [phone] When: Call to make an appointment to be seen in about 10 days.
[2020-04-19] MEDS: Cefazolin 2 GM in 0.9% Normal Saline 100 ML IV (07:26)
--- NOTE | 2020-04-19 07:30 | GALL_PTH ---
PATIENT: LORI BELL LOC: [facility]3 U#:[id number] AGE/SX: 25/M ROOM: [facility]319 RE04/19/[address]: Dr. Dennis Villalba MD : 1995 BED: 1 DIS: 04/20/2020 SPEC #: [id number] RECD: 04/19/20 11:55 STATUS: RUBY RODRIGUEZ #: [id number] KERRI: 04/19/20 07:[address]: Dennis Villalba DEPT: SURGICAL PATHOLOGY RECD BY: Cody Whitehead ENTERED: 04/19/20 12:22 SP TYPE: NICOLASA MCDUFFIE DR: Dr. Mp Ashford MD Tissues: Gallbladder, NOS Procedures: Surgery Specimen Level III HEADER OPERATION: Laparoscopic cholecystectomy PRE-OP DIAGNOSIS: Acid reflux, esophagitis, GERD TISSUE SUBMITTED: Gallbladder MICROSCOPIC DIAGNOSIS Gallbladder, cholecystectomy: Mild chronic cholecystitis. No stones are identified in the container or in the gallbladder. SJ:barbara 04/20/20 MICROSCOPIC DESCRIPTION Slides are reviewed. GROSS DESCRIPTION Received is one container labeled with the patient's name and designated gallbladder. The specimen consists of a gallbladder measuring 10 cm in length and up to 4 cm in diameter. The external surface is pink-powell, smooth and glistening for the most part. Focally it is granular, hemorrhagic and contains cautery artifact. The gallbladder contains green-yellow mucoid bile. No stones are identified in the container or in the gallbladder. The mucosa is bile-stained and without any mass lesions. The gallbladder wall measures up to 0.3 cm in thickness. A focal area of increased subserosal fat is noted. Chargemaster Analyst sections from the gallbladder and the cystic duct are submitted in one cassette. / SAVANNAH:barbara 04/19/20 TC:3 [facility]: [id number]
[2020-04-19] MEDS: Bupivacaine Mpf 0.5% 30 ML VIAL (11:38)
--- NOTE | 2020-04-19 11:48 | PCM.OPRPT ---
Problem List (1) Acid reflux Status: Chronic Qualifiers: Esophagitis presence: with esophagitis Esophagitis bleeding: without hemorrhage Qualified Code(s): K21.00 - Gastro-esophageal reflux disease with esophagitis, without bleeding (2) Biliary dyskinesia Status: Acute Report of Operation Date of Procedure: 04/19/20 Pre-Operative Diagnosis: Gastroesophageal reflux disease with severe reflux esophagitis. Biliary dyskinesia Post-Operative Diagnosis: Same Surgery/Procedure Performed:: Laparoscopic repair of hiatal hernia with laparoscopic toupet procedure. Postprocedural esophagogastroduodenoscopy. Laparoscopic cholecystectomy Description of Surgical Findings:: Timeout and informed consent was obtained. 25-year-old was taken to the operating placed supine on the table underwent general endotracheal intubation anesthesia. He was placed in a low lithotomy position with careful buttock cushioning with rolled blankets and careful padding of legs and arms. Left arm was tucked at his side right arm was had an armboard he was on a beanbag. The abdomen was sterilely prepped and draped. Ioban draping was utilized as well. Ancef 2 g were given intravenously preoperatively. 0.5% Marcaine was used as a local anesthetic. 30 cc was used. Skin sites were preanesthetized. At the completion of the operation I used 1% lidocaine 30 cc as a mini completion tap block. Superior and slightly in the right upper quadrant area I used a 5 mm incision and a 5 mm Visiport to gain direct access to the abdomen. No trocar injuries. 10 mm trocar was placed to the left 2 more 5 mm trochars on the left upper quadrant at the completion of procedure doing the gallbladder I used 2 more 5 mm trochars in the right upper quadrant. There was an additional 5 m trocar in the Epigastric area for the Juan Luis retractor. The patient was placed in a reverse Trendelenburg position. The Juan Luis distractor was inserted in view superior to the left lobe of the liver. The patient was noted to be quite fibrofatty internally. Dissection was tedious. The right tommy of the diaphragm identified Harmonic Scalpel was used to dissect this free for distance. Then I incised the short gastrics this was very tedious as the fundus of the stomach was tightly adherent to the superior aspect of the spleen. Great care was taken in releasing this. This allowed me then to visualize the left tommy of the diaphragm to start him with a scalpel to dissect there and then around the posterior aspect of the esophagus. I was able to place 1/2 inch Deborah drain elevate the esophagus and then I dissected free the inferior 6 cm of mediastinum completely circumferentially the dissecting free the esophagus. The vagus nerve protected with the esophagus and the [place]. I now had both the left and right crura cleanly identified. I utilized 0 Ethibond sutures with pledgets 3 separate individual stitches were placed to approximate the crura. I used a 46 Nepali bougie to confirm repair. I then wrapped the fundus around the posterior aspect of the EGD junction and esophagus. I secured the posterior aspect of the fundus to the crura with 3-0 Ethibond. I then performed a toupet 270 degree wrap securing the superior aspect of the esophagus through the epiphrenic ligament and to the wrap portion of the stomach and did that with a running 2-0 Ethibond. I then used the fundus portion of the stomach and in a like fashion and secured it to the stomach epiphrenic ligament and to the esophagus and then approximated to the esophagus for approximately 2 to 3 cm. I felt that I had very good positioning. I then performed a esophagogastroduodenoscopy which is dictated in probation. This demonstrated a patchy actually had food in esophagus so I had to irrigate that back down into the stomach. Whereas previously the patient had had an absolutely wide open lower esophageal sphincter now that was seemingly normal but I was able to get the scope easily passed junction retroflexed it could see that the posterior wrap was nicely intact. Excess fluid nurse aspirated freed and OG tube was reinserted. Because the patient had findings also consistent with symptomatic gallbladder disease I added 2 more 5 Villatoro ports in the right upper quadrant and tediously and carefully dissected the gallbladder free. The critical view was achieved. The cystic artery was secured with hemolock clips and transected with harmonic scalpel. The cystic duct area was cleanly identified and 2 hemolock clips were placed proximally 1 distally prior to transecting it. The gallbladder is dissected free from the liver bed using combination of harmonic scalpel and electrocautery. Further hemostasis was achieved by placing fibrillar in the liver bed. I held pressure on that area and allow the abdomen deflate. I then reinflated the abdomen inspected the gallbladder area this appeared to be hemostatic. Next I inspected the hiatal hernia repaired area this also nicely intact. The Juan Luis retractor was then removed under visualization. The 10 mm port site was closed with a grainy needle in a olozyi-oc-kboer suture of 0 Vicryl. I performed a mini tap block bilateral subcostal using the 1% lidocaine as I had already used my Marcaine. I then allowed the abdomen to deflate through antiviral valves. Trochars removed. Skin edges approximated opted for Monocryl subdermal stitches. Steri-Strips Telfa OpSite dressings applied. Sponge and instrument and needle counts were reported to the surgeon be correct. Blood loss approximately 10 cc total. Specimens gallbladder. Drains none. The patient was taken to recovery area in satisfactory edition without complication. Specimens gallbladder. Drains none. Blood loss 10 cc. Dennis Villalba M.D., F.A.C.S. Type of Anesthesia:: General Anesthesiologist: Pito Jefferson
[2020-04-19] MEDS: Lactated Ringers 1,000 ML 70 ML IV ×2 (13:39→17:59)
[2020-04-19] MEDS: Morphine 2 MG/ML Syringe IV ×3 (14:38→16:53)
--- NOTE | 2020-04-19 15:57 | PN.SURG_ITS ---
Patient Problems: Active and Suspected Problems (Last Reviewed 04/04/20 @ 14:12 by Keysha Ricardo) Biliary dyskinesia (Acute) Subjective: POD 1 Patient is having some difficulty urinating but is voiding. Is complaining of epigastric pain. He has had 2 different allotments of IV morphine. - Physical Exam Vitals/I&O's: Vital Signs Temp Pulse Resp BP Pulse Ox 98.1 F 94 16 160/95 H 97 04/19/20 14:30 04/19/20 14:30 04/19/20 14:30 04/19/20 14:30 04/19/20 14:30 Oxygen Delivery Method Room Air Weight: 209 lb 14.081 oz Body Mass Index (BMI) 30.1 Intake and Output for Last 24 Hours 04/17/20 04/18/20 04/19/20 23:59 23:59 23:59 Intake Total 2132.5 / 2132.5 Output Total 275 / 275 Balance 1857.5 / 1857.5 Current Medications Acetaminophen (Acetaminophen 325 Mg Tablet) 650 mg PO Q6H PRN PRN PRN Reason: Pain Score 1-10 Aripiprazole (Aripiprazole 5 Mg Tablet) 10 mg PO DAILY [facility] Duloxetine HCl (Duloxetine Hcl 60 Mg Capsule) 60 mg PO DAILY [facility] Enoxaparin Sodium (Enoxaparin 40 Mg/0.4 Ml Syringe) 40 mg SC DAILY [facility] Lactated Ringer's () 1,000 mls @ 70 mls/hr IV .[id number] [facility] Last Admin: 04/19/20 13:39 Dose: 70 mls/hr Documented by: Morphine Sulfate (Morphine 2 Mg/Ml Syringe) 2 - 4 mg IV Q1H PRN PRN PRN Reason: Pain Score 1-10 Last Admin: 04/19/20 15:06 Dose: 2 mg Documented by: Morphine Sulfate (Morphine 4 Mg/Ml Syringe) 2 - 4 mg IV Q1H PRN PRN PRN Reason: Pain Score 1-10 Ondansetron HCl (Ondansetron 4 Mg/2 Ml Vial) 4 mg IV Q8H PRN PRN PRN Reason: NAUSEA Oxycodone HCl (Oxycodone 5 Mg Tablet) 5 - 10 mg PO Q4H PRN PRN PRN Reason: Pain Score 1-10 Pantoprazole Sodium (Pantoprazole Sodium 40 Mg Tablet) 40 mg PO DAILY [facility] Sodium Chloride (0.9% Saline Lock 10 Ml Syringe) 10 - 40 ml IV UD PRN PRN Reason: SALINE FLUSH Medical Necessity - Tobacco Use Smoking Status: Never smoker Tobacco Use: Non-smoker Assessment/Plan All Active Problems (Last Reviewed 04/04/20 @ 14:12 by Keysha Ricardo) Biliary dyskinesia (Acute) Gastritis (Acute) History of esophagogastroduodenoscopy (EGD) (Acute) Hx of colonoscopy (Acute) Abdominal pain (Acute) Weight loss, non-intentional (Acute) Rectal bleeding (Acute) Hematemesis of unknown cause (Acute) Blood in stool (Acute) Nausea (Acute) Abdominal pain (Acute) At this point I think I will hold off on clear liquids. Patient still seems somewhat lethargic and affected by the medications. If need be we will pursue a bladder scan. We will hold his Carafate because it only comes this tablet form. The patient and his mother have had an opportunity ask no questions answered. I anticipate another set or rounds tomorrow morning. Dennis Villalba M.D., F.A.C.S.
[2020-04-19] MEDS: Lidocaine Jelly 2% 20 ML Syringe (URO-JET) 20 APPLIC TOPICAL (16:31)
[2020-04-19] MEDS: Morphine 4 MG/ML Syringe IV ×4 (17:56→23:48)
[2020-04-19] MEDS: 0.9% Saline Lock 10 ML Syringe IV (19:51)
[2020-04-20] MEDS: Morphine 4 MG/ML Syringe IV ×2 (01:45→05:25)
[2020-04-20 03:07] VITALS: BP 153/93; PULSE 110; RESP 20; TEMP 37.2; O2SAT 93
[2020-04-20] MEDS: oxyCODONE 5 MG Tablet PO ×3 (03:09→14:44)
--- NOTE | 2020-04-20 05:51 | PN.SURG_ITS ---
Patient Problems: Active and Suspected Problems (Last Reviewed 04/04/20 @ 14:12 by Keysha Ricardo) Biliary dyskinesia (Acute) Subjective: Patient states that he is in more discomfort than he had anticipated. No nausea. No flatus. He did require a Duke catheter placed for acute urinary retention. He is much more alert however than the last evening. He is sitting up in a chair. - Physical Exam Vitals/I&O's: Vital Signs Temp Pulse Resp BP Pulse Ox 98.9 F 110 H 20 H 153/93 H 93 04/20/20 03:07 04/20/20 03:07 04/20/20 03:07 04/20/20 03:07 04/20/20 03:07 Oxygen Delivery Method Room Air Weight: 209 lb 14.081 oz Body Mass Index (BMI) 30.1 Intake and Output for Last 24 Hours 04/18/20 04/19/20 04/20/20 23:59 23:59 23:59 Intake Total 2635.83 / 2635.83 Output Total 2925 / 2925 Balance -289.17 / -289.17 General: Alert, Oriented x3, Cooperative Lungs: Clear to auscultation, Normal air movement Abdomen: Bowel Sounds Present, Soft Current Medications Acetaminophen (Acetaminophen 325 Mg Tablet) 650 mg PO Q6H PRN PRN PRN Reason: Pain Score 1-10 Aripiprazole (Aripiprazole 5 Mg Tablet) 10 mg PO DAILY [facility] Duloxetine HCl (Duloxetine Hcl 60 Mg Capsule) 60 mg PO DAILY [facility] Enoxaparin Sodium (Enoxaparin 40 Mg/0.4 Ml Syringe) 40 mg SC DAILY [facility] Lactated Ringer's () 1,000 mls @ 70 mls/hr IV .[id number] [facility] Last Admin: 04/19/20 17:59 Dose: 70 mls/hr Documented by: Influenza Virus Vaccine Quadrival (Influenza Vaccine (6mos+)/Pf 0.5 Ml Syringe) 0.5 ml IM .ONCE ONE Stop: 04/20/20 10:01 Morphine Sulfate (Morphine 2 Mg/Ml Syringe) 2 - 4 mg IV Q1H PRN PRN PRN Reason: Pain Score 1-10 Last Admin: 04/19/20 16:53 Dose: 2 mg Documented by: Morphine Sulfate (Morphine 4 Mg/Ml Syringe) 2 - 4 mg IV Q1H PRN PRN PRN Reason: Pain Score 1-10 Last Admin: 04/20/20 05:25 Dose: 4 mg Documented by: Ondansetron HCl (Ondansetron 4 Mg/2 Ml Vial) 4 mg IV Q8H PRN PRN PRN Reason: NAUSEA Oxycodone HCl (Oxycodone 5 Mg Tablet) 5 - 10 mg PO Q4H PRN PRN PRN Reason: Pain Score 1-10 Last Admin: 04/20/20 03:09 Dose: 10 mg Documented by: Pantoprazole Sodium (Pantoprazole Sodium 40 Mg Tablet) 40 mg PO DAILY [facility] Sodium Chloride (0.9% Saline Lock 10 Ml Syringe) 10 - 40 ml IV UD PRN PRN Reason: SALINE FLUSH Last Admin: 04/19/20 19:51 Dose: 10 ml Documented by: Medical Necessity - Tobacco Use Smoking Status: Never smoker Tobacco Use: Non-smoker Assessment/Plan All Active Problems (Last Reviewed 04/04/20 @ 14:12 by Keysha Ricardo) Biliary dyskinesia (Acute) Gastritis (Acute) History of esophagogastroduodenoscopy (EGD) (Acute) Hx of colonoscopy (Acute) Abdominal pain (Acute) Weight loss, non-intentional (Acute) Rectal bleeding (Acute) Hematemesis of unknown cause (Acute) Blood in stool (Acute) Nausea (Acute) Abdominal pain (Acute) The patient's mom was present. I went over discharge instructions. We will start clear liquids. We will remove the Duke. I will treated with 1 dose of Flomax. He states he did not get his routine medications yesterday and we will resume those as well. I will recheck with nursing staff later today with hopeful and anticipated discharge. Dennis Villalba M.D., F.A.C.S.
[2020-04-20 06:45] VITALS: BP 160/88; PULSE 107; RESP 18; TEMP 37; O2SAT 96
[2020-04-20] MEDS: Morphine 2 MG/ML Syringe IV ×2 (08:08→11:17)
[2020-04-20] MEDS: Tamsulosin HCl 0.4 MG Capsule PO (08:08)
[2020-04-20] MEDS: Pantoprazole Sodium 40 MG Tablet PO (10:26)
[2020-04-20] MEDS: DULoxetine Hcl 60 MG Capsule PO ×2 (10:26)
[2020-04-20] MEDS: ARIPiprazole 5 MG Tablet 10 MG PO (10:26)
[2020-04-20] MEDS: Enoxaparin 40 MG/0.4 ML Syringe SC (10:31)
[2020-04-20] MEDS: 0.9% Saline Lock 10 ML Syringe IV (11:17)
[2020-04-20 12:45] VITALS: BP 148/75; PULSE 99; RESP 18; TEMP 36.9; O2SAT 96
[2020-04-20] MEDS: Acetaminophen 325 MG Tablet 650 MG PO (13:38)
[2020-04-20 15:39] VITALS: BP 137/93; PULSE 97; RESP 18; TEMP 36.7; O2SAT 92
== END 2020-04-20 16:03 | disposition home or self-care (01) ==
LOC: MS3 04-20 07:23
PROVIDERS: Anesthesiology; PCP Family Medicine; Referring Provider Surgery; Visit Provider Surgery
PROC: (CPT 43325; principal; 2020-04-19 07:10)
PROC: (CPT 47610; 2020-04-19 07:10)
DX: K81.1 Chronic cholecystitis (principal); K21.00 Gastro-esophageal reflux disease with esophagitis, without bleeding; Z23 Encounter for immunization; K44.9 Diaphragmatic hernia without obstruction or gangrene; F17.200 Nicotine dependence, unspecified, uncomplicated; K58.9 Irritable bowel syndrome, unspecified; Z79.899 Other long term (current) drug therapy; R33.9 Retention of urine, unspecified; F41.9 Anxiety disorder, unspecified; F32.9 Major depressive disorder, single episode, unspecified
CPT/HCPCS: 00790; 43281; 47562; 87635; 88304; 93005; 96372; 96374; 96376; 99218; 99251; C9803; J7120; 90686; A4216; G0378; G0379; G0463; J2405; U0003

== ENCOUNTER 2020-06-19 08:48 | Emergency (ER) | payer OTHER, MEDICAID, SELFPAY ==
[2020-04-19 15:39] VITALS: BMI 30.1
[2020-06-19 08:49] VITALS: BP 159/89; PULSE 71; RESP 16; TEMP 36.2; O2SAT 100; BMI 28.7
--- NOTE | 2020-06-19 09:24 | ED.VISSUMM ---
- ER Visit Summary Date of Service: 06/19/20 Chief Complaint: Suicidal ideation History of Present Illness: The patient is a 25 M who presents with suicidal ideations that have been getting worse over the past month and a half. Patient states that he has been forgetting to take his antidepressants. Patient states he has had thoughts of cutting himself or taking pills. Patient does have a history of depression but does not currently see a psychiatrist. Patient admits to marijuana use. Patient states nothing made this worse and nothing makes it better. Physical Examination: Vital signs are stable. Patient is afebrile. Patient is in no acute distress. Oral mucosa is pink and moist. Neck is supple. Trachea is midline. There is no JVD noted. Heart was regular rate and rhythm. Lungs are clear and equal bilaterally. Abdomen is soft. Bowel sounds are normal. There is no tenderness. There is no rebound or guarding noted. Skin is warm dry. Cranial nerves II through XII are intact. There are no focal motor or sensory deficits noted. Extremities are intact. There is no calf tenderness or edema. Patient does have a flat affect and a depressed mood. Patient admits to suicidal ideations. Test Results: EKG was obtained. On my interpretation there is a sinus rhythm with a sinus arrhythmia. There are no acute ST or T wave changes. There are no prior EKGs available for comparison. CBC and basic metabolic profile were obtained and were within normal limits. COVID-19 antigen test was negative. Serum alcohol level was negative. Urine tox urine was positive for cannabinoids but was otherwise negative. Emergency Department Course and Treatment: Patient began feeling anxious and was given a dose of Ativan. Patient was feeling better. Case management was in to talk with the patient and felt that the patient would benefit from inpatient treatment. She made arrangements for the patient to be placed at [facility]. Patient will be transferred there. Patient understands and is agreeable with the plan. All questions were answered. Disposition: Transfer to psychiatric facility Impression: Depression with suicidal ideation This note was generated with K[employer]hu dictation software. It may contain incorrect words, spelling, and punctuation that were not noted in review of the chart prior to signing ED Disposition - Plan for ED Patient: Disposition: Psychiatric Hospital or Unit Diagnosis: Depression with suicidal ideation Referrals: Mp Ashford MD [Primary Care Provider] -
[2020-06-19 09:28] LABS: Absolute Lymphocyte Count 2.76 X10^3/uL (0.83-4.51); Absolute Neutrophil Count 4.6 X10^3/uL (2.0-7.7); Basophil# 0.04 X10^3/uL; Basophil% 0.5 % (0-1); Eosinophil# 0.38 X10^3/uL; Eosinophils% 4.4 % (0-5); Hematocrit 47.9 % (40-54); Hemoglobin 16.2 g/dL (13.0-16.5); Lymphocyte # 2.76 X10^3/ul (4.0); Lymphocyte % 32.1 % (19-41); Mean Corp Hgb Conc 33.8 g/dL (32-36); Mean Corpuscular Hgb 29.7 pg (27.0-32.0); Mean Corpuscular Volume 87.7 fL (80-94); Mean Platelet Vol. 9.2 fl (6.2-12.0); Monocyte# 0.79 X10^3/uL; Monocyte% 9.2 % (0-10); NRBC Flagged by Analyzer 0 % (0-5); Neutrophil # 4.61 X10^3/uL (2.7-7.7); Neutrophil % 53.6 % (47-70); Platelet Count 291 K/mm3 (150-450); RBC Distribution Width CV 12.7 % (11.6-14.6); RBC Distribution Width SD 40.7 fl (35.1-43.9); Red Blood Count 5.46 M/mm3 (4.6-6.2); White Blood Count 8.6 K/mm3 (4.4-11.0)
[2020-06-19 09:34] LABS: Anion Gap 4 (5-15); BUN 14 mg/dL (7-18); BUN/Creat Ratio 13.6 RATIO (10-20); Calcium,Total 8.7 mg/dL (8.5-10.1); Chloride 106 mmol/L (98-107); Creatinine, Serum 1.03 mg/dL (0.70-1.30); EST Glomerular Filtration Rate 92 mL/min (>60); Est Glom Filt Rate - Afr Amer 111 mL/min (>60); Estimated Creatinine Clearance 111.23 ml/min; Glucose 92 mg/dL (74-106); Potassium 3.5 mmol/L (3.5-5.1); Sodium Level 139 mmol/L (136-145)
[2020-06-19 09:50] LABS: Alcohol, Blood (Medical)-Serum < 3.0 mg/dL
[2020-06-19 10:00] VITALS: RESP 16
[2020-06-19 10:05] LABS: Amphetamine Urine VISTA NEGATIVE (<1000 ng/mL); Barbiturate Urine VISTA NEGATIVE (< 200 ng/mL); Benzodiazepine Urine VISTA NEGATIVE (< 200 ng/mL); Cocaine Urine VISTA NEGATIVE (< 300 ng/mL); Ecstacy Urine VISTA NEGATIVE (< 500 ng/mL); Methadone Urine VISTA NEGATIVE (< 300 ng/mL); PCP Urine VISTA NEGATIVE (< 25 ng/mL); THC Urine VISTA POSITIVE (< 50 ng/mL); Vista UDS pH Range 6
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
--- NOTE | 2020-06-19 11:15 | EKG12_ITS ---
Test Reason : MENTAL HEALTH Blood Pressure : / mmHG Vent. Rate : 060 BPM Atrial Rate : 060 BPM P-R Int : 184 ms QRS Dur : 098 ms QT Int : 372 ms P-R-T Axes : 041 046 046 degrees QTc Int : 372 ms Sinus rhythm with marked sinus arrhythmia Nonspecific ST and T wave abnormality Abnormal ECG Confirmed by GUADALUPE SKY, FRANCK ([id number]), manager editorial WINDY HAYS ([id number]) on 06/28/2020 10:07:59 AM Referred By: KIMBERLYN Confirmed By:SONALI BUTCHER MD
[2020-06-19 11:28] VITALS: RESP 16
--- NOTE | 2020-06-19 11:48 | CM.ED ---
Social Work Telephone call to Brendan Benitez, intake. Referral made. Clinical information faxed. Intake reports to currently have open beds. Pending review. Talya NELSON, BUNNY
[2020-06-19 12:00] VITALS: BP 128/72; PULSE 89; RESP 18; O2SAT 99
--- NOTE | 2020-06-19 12:15 | CM.ED ---
Social Work Patient requesting to speak with this social work associate. Patient pacing room and tearful. Patient inquiring about being able to discharge to home with patient mother watching me. Patient provided verbal permission for this social work associate to call patient mother, Michelle. Telephone call to Michelle. Michelle voices concerns about patient safety and patient being able to care for self. Michelle recommending for hospitalization for patient as patient has not been doing well. This social work associate back to patient room. This social work associate updated patient on patient mother concerns as well. Patient voices understanding and able to calm self. Patient then wanting to call patient mother. Patient calling patient mother at this time. Talya NELSON, BEKAH-S
[2020-06-19] MEDS: LORazepam 0.5 MG Tablet PO (12:16)
--- NOTE | 2020-06-19 12:49 | CM.ED ---
Social Work Telephone call from Bianca Harris. Patient accepted by Dr. Jose Blue to room 106. Nurse to call report to [phone] and ask for Bianca. This licensed clinical social worker updated patient (patient on phone with patient mother). Patient updated patient mother over phone. Updated medical team. Talya NELSON, BUNNY
--- NOTE | 2020-06-19 14:13 | CM.ED ---
Social Work Telephone call to patient mother per patient request to update on patient disposition. Patient mother, Michelle updated on patient discharge to [facility] and has no further questions. Talya NELSON, BUNNY
== END 2020-06-19 14:26 ==
PROVIDERS: Emergency Provider Emergency Medicine; PCP Family Medicine
DX: F32.9 Major depressive disorder, single episode, unspecified (principal); R45.851 Suicidal ideations; Z79.899 Other long term (current) drug therapy
CPT/HCPCS: 80048; 80307; 80320; 85025; 87426; 93005; 99285; G0480

== ENCOUNTER → 2020-09-29 08:30 | Outpatient (CLI) | payer OTHER, MEDICAID, SELFPAY ==
--- NOTE | 2020-09-29 08:53 | RAD_ITS ---
STUDY: AIR CONTRAST UPPER GI SERIES REASON FOR EXAM: Male, 25 years old. NAUSEA AND VOMITING. History of prior hiatal hernia repair. FLUOROSCOPY TIME (if supplied): (0:48) minutes/seconds. 20 one images were obtained. TECHNIQUE: SINGLE CONTRAST AND AIR CONTRAST FLUOROSCOPIC IMAGES. COMPARISON: None. FINDINGS: The cervical esophagus demonstrates normal motility without aspiration. There is no stricture or extrinsic mass effect. No intraluminal polypoid mass is identified. The thoracic esophagus distends well without stricture or mucosal fold thickening. No mucosal ulcerations are identified. There is no extrinsic mass effect. There are no diverticula. No hiatal hernia or gastroesophageal reflux was identified. The patient ingested a 12 mm tablet of barium without difficulty. The stomach distends well without mucosal fold thickening or mucosal ulceration. There is no intraluminal mass. The duodenal bulb is freely distensible without deformity or ulceration. The duodenal sweep is normal in position and caliber. RAD/Upper GI w/BA Swallow IMPRESSION: Normal air-contrast upper GI series. Electronically Signed: Johan Hudson MD at 13:42 EDT , Service support ,
== END ==
PROVIDERS: PCP Family Medicine; Referring Provider Surgery; Visit Provider Surgery
DX: R11.2 Nausea with vomiting, unspecified (principal)
CPT/HCPCS: 74246

== ENCOUNTER 2023-01-12 02:30 | Emergency (ER) | payer MEDICAID, SELFPAY ==
[2023-01-12 02:32] VITALS: BP 161/88; PULSE 78; RESP 18; TEMP 36.8; O2SAT 99; BMI 26.2
[2023-01-12] MEDS: 0.9% Normal Saline 1,000 ML 1000 ML IV (03:03)
[2023-01-12] MEDS: Ketorolac 15 MG/ML Vial IV (03:03)
[2023-01-12] MEDS: Ondansetron 4 MG/2 ML Vial IV (03:03)
[2023-01-12] MEDS: Famotidine 200 MG/20 ML MDV 20 MG in 0.9% Normal Saline (Pres. free 8 ML 300 MG IV (03:04)
[2023-01-12 03:06] LABS: Absolute Lymphocyte Count 0.64 X10^3/uL (0.83-4.51); Absolute Neutrophil Count 13.3 X10^3/uL (2.0-7.7); Basophil# 0.04 X10^3/uL; Basophil% 0.3 % (0-1); Eosinophil# 0.12 X10^3/uL; Eosinophils% 0.8 % (0-5); Hematocrit 42.1 % (40-54); Hemoglobin 14.7 g/dL (13.0-16.5); Lymphocyte # 0.64 X10^3/ul (0.83-4.51); Lymphocyte % 4.3 % (19-41); Mean Corp Hgb Conc 34.9 g/dL (32-36); Mean Corpuscular Hgb 30.5 pg (27.0-32.0); Mean Corpuscular Volume 87.3 fL (80-94); Mean Platelet Vol. 9.1 fl (6.2-12.0); Monocyte# 0.78 X10^3/uL; Monocyte% 5.2 % (0-10); NRBC Flagged by Analyzer 0 % (0-5); Neutrophil # 13.32 X10^3/uL (2.7-7.7); Neutrophil % 88.9 % (47-70); Platelet Count 248 K/mm3 (150-450); RBC Distribution Width CV 11.8 % (11.6-14.6); RBC Distribution Width SD 37.6 fl (35.1-43.9); Red Blood Count 4.82 M/mm3 (4.6-6.2)
--- NOTE | 2023-01-12 03:09 | EDS_ITS ---
HPI History of Present Illness Chief Complaint: General Illness Narrative Narrative: Patient presents with sore throat, nausea and feeling ill for a few days. He has upper respiratory congestion. He has no dyspnea. He does not have a cough. He does not have abdominal pain. He has not noted fevers. No neck pain. [facility] Medical History (Updated 01/12/23 @ 03:[address] Fam Manjarrez MD) Abdominal pain Abdominal pain Acid reflux Anxiety Biliary dyskinesia Blood in stool Depression Gastritis Hematemesis of unknown cause Hiatal hernia Nausea Rectal bleeding Vomiting Weight loss, non-intentional Home Medications lamotrigine 100 mg tablet 50 mg PO DAILY 01/12/23 [History Last Taken Unknown] naproxen 500 mg tablet (Naprosyn) 500 mg PO BID PRN pain #20 tabs 01/12/23 [Rx Last Taken Unknown] sertraline 100 mg tablet 100 mg PO DAILY 01/12/23 [History Last Taken Unknown] Allergy/AdvReac Type Severity Reaction Status Date / Time No Known Allergies Allergy Verified 01/12/23 02:35 Family History Mother Hypertension Father Hypertension Surgical History history lap hiatal hernia repair (~04/19/20) History of esophagogastroduodenoscopy (EGD) History of laparoscopic cholecystectomy (~04/19/20) Hx of colonoscopy Social History (Updated 09/25/20 @ 15:[address] Dennis Villalba MD) Smoking Status: Never smoker alcohol intake: never substance use type: does not use what type of physical activity do you participate in: none frequency: does not exercise seatbelt use: always ROS ROS ED ROS Narrative Past medical history: Reviewed Medications: Reviewed Social history: Noncontributory Review of systems: General: No fever Eyes: No visual changes ENT: As in HPI Neck: No neck pain Cardiovascular: No chest pain Respiratory: No shortness of breath or cough Gastrointestinal: No abdominal pain. Some nausea. No vomiting. No diarrhea. Genitourinary: No dysuria Musculoskeletal: Denies myalgias no difficulty with ambulation Skin: No rash Neurological: No memory loss, confusion or any focal weakness EXAM Physical Exam Narrative Exam Narrative: Physical exam General: Well nourished, Well developed, No Acute Distress Head: Normocephalic, Atraumatic Eyes: Conjunctiva not pale ENT: Moist mucous membranes. There is some pharyngeal erythema but no exudates. Normal soft palate normal uvula. Normal voice without stridor. Handling secretions quite well. Neck: Supple, Nontender, No lymphadenopathy Cardiovascular: Regular rate, Regular rhythm Respiratory: No distress, CTA bilaterally Abdomen: Soft, Nontender, Nondistended Back: Nontender, Normal Inspection. Negative for: CVA tenderness Extremities: Nontender, No edema Skin: Normal color, No rash Neurological: Alert, Normal Strength, Normal Sensation Psychological: Normal affect Const Vital Signs: 01/12/23 02:32 01/12/23 02:38 Temperature 98.2 F Temperature Source Oral Pulse Rate 78 Respiratory Rate 18 Respiratory Effort Normal Non-Labored Respiratory Pattern Normal Blood Pressure 161/88 H Blood Pressure Mean 112 Pulse Ox 99 Oxygen Delivery Method Room Air MDM MDM MDM Narrative Medical decision making narrative: Patient is found to have streptococcal pharyngitis. He has mild leukocytosis but otherwise normal blood work he is given fluids and Toradol and improved. At this time there is no evidence clinically of any deep abscess. Thus a CT was not ordered. Patient was given Bicillin. He will be discharged in stable condition. He does not meet criteria for a chest x-ray at this time. Lab Data Labs: Laboratory Results - last 24 hr 01/12/23 02:50 WBC 15.0 H RBC 4.82 Hgb 14.7 Hct 42.1 MCV 87.3 MCH 30.5 MCHC 34.9 RDW Std Deviation 37.6 RDW Coeff of Mila 11.8 Plt Count 248 MPV 9.1 Immature Gran % (Auto) 0.500 Neut % (Auto) 88.9 H Lymph % (Auto) 4.3 L [place] % (Auto) 5.2 Eos % (Auto) 0.8 Baso % (Auto) 0.3 Absolute Neuts (auto) 13.3 H Absolute Lymphs (auto) 0.64 L Nucleated RBC % 0 Sodium 140 Potassium 3.6 Chloride 107 Carbon Dioxide 28.0 Anion Gap 5 BUN 10 Creatinine 1.03 Estim Creat Clear Calc 109.26 Est GFR (MDRD) Af Amer 109 Est GFR (MDRD) Non-Af 90 BUN/Creatinine Ratio 9.7 L Glucose 120 H Calcium 8.8 Total Bilirubin 0.80 AST 15 ALT 15 L Alkaline Phosphatase 70 Total Protein 6.9 Albumin 3.6 Globulin 3.3 Albumin/Globulin Ratio 1.1 Lipase 24 Discharge Plan Triage Chief Complaint: General Illness ED Provider: Fam Manjarrez Dx/Rx/DC Orders Clinical Impression: Acute streptococcal pharyngitis, Nausea Instructions: ED Pharyngitis, Strep (Confirmed) Prescriptions: New naproxen [Naprosyn] 500 mg tablet 500 mg PO BID PRN (Reason: pain) Qty: 20 0RF No Action lamotrigine 100 mg tablet 50 mg PO DAILY sertraline 100 mg tablet 100 mg PO DAILY Primary Care Provider: Mp Ashford Referrals: Mp Ashford MD [Primary Care Provider] - 3-5 Days Disposition Disposition: Home, Self Care
[2023-01-12 03:26] LABS: ALB/GLOB Ratio 1.1 RATIO (0.9-2.4); AST(SGOT) 15 U/L (15-37); Alanine Aminotransfer ALT/SGPT 15 U/L (16-61); Albumin, Serum 3.6 g/dL (3.2-5.0); Alkaline Phosphatase 70 U/L (45-117); Anion Gap 5 (5-15); BUN 10 mg/dL (7-18); BUN/Creat Ratio 9.7 RATIO (10-20); Calcium,Total 8.8 mg/dL (8.5-10.1); Chloride 107 mmol/L (98-107); Creatinine, Serum 1.03 mg/dL (0.70-1.30); EST Glomerular Filtration Rate 90 mL/min (>60); Est Glom Filt Rate - Afr Amer 109 mL/min (>60); Estimated Creatinine Clearance 109.26 ml/min; Globulin 3.3 g/dL (2.2-4.2); Glucose 120 mg/dL (74-106); Lipase 24 U/L (13-75); Potassium 3.6 mmol/L (3.5-5.1); Protein, Total 6.9 g/dL (6.4-8.2); Sodium Level 140 mmol/L (136-145)
[2023-01-12] MEDS: Penicillin G Benzathine 1.2 MU/2 ML Syringe IM (03:48)
[2023-01-12 04:21] VITALS: BP 145/68; PULSE 69; RESP 18; O2SAT 97
== END 2023-01-12 04:22 | disposition home or self-care (01) ==
PROVIDERS: Emergency Provider Emergency Medicine; PCP Family Medicine; Visit Provider Emergency Medicine
DX: J02.0 Streptococcal pharyngitis (principal); R11.0 Nausea; Z90.49 Acquired absence of other specified parts of digestive tract
CPT/HCPCS: 80053; 83690; 85025; 87077; 87880; 96365; 96372; 96375; 99282; J7030; J2405; J3490

== ENCOUNTER 2023-06-22 15:27 | Emergency (ER) | payer MEDICAID, SELFPAY ==
[2023-06-22 15:28] VITALS: BP 174/101; PULSE 147; RESP 16; TEMP 36.3; O2SAT 98; BMI 26.2
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
--- NOTE | 2023-06-22 16:52 | NURSING ---
CRISIS IN ROOM WITH PATIENT
== END 2023-06-22 17:52 | disposition home or self-care (01) ==
PROVIDERS: Emergency Provider Emergency Medicine; PCP Family Medicine; Visit Provider Emergency Medicine
DX: S80.212A Abrasion, left knee, initial encounter (principal); Z87.891 Personal history of nicotine dependence; F32.A Depression, unspecified; Z79.899 Other long term (current) drug therapy; Z90.49 Acquired absence of other specified parts of digestive tract; Z23 Encounter for immunization; X58.XXXA Exposure to other specified factors, initial encounter; Y93.01 Activity, walking, marching and hiking; Y92.830 Public park as the place of occurrence of the external cause
CPT/HCPCS: 99282

== ENCOUNTER 2023-06-28 11:32 | Emergency (ER) | payer MEDICAID, SELFPAY ==
[2023-06-28 11:34] VITALS: BP 159/99; PULSE 89; RESP 14; TEMP 36.4; O2SAT 98; BMI 26.1
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
--- NOTE | 2023-06-28 11:50 | RAD_ITS ---
STUDY: X-RAY - RIGHT HAND REASON FOR EXAM: Male, 28 years old. Pain. TECHNIQUE: 3 view(s) of the hand. COMPARISON: None. FINDINGS: Normal radiocarpal articulation. Normal distal radioulnar joint. Normal visualized carpal bones. Normal carpal articulations Normal carpometacarpal articulation of the thumb. Normal second through fifth carpometacarpal joints. Normal metacarpi. Normal metacarpophalangeal joint of the thumb. Normal interphalangeal joint of the thumb. Normal proximal and distal phalanges of the thumb. Normal metacarpophalangeal joints of the second through fifth fingers. Normal proximal and distal interphalangeal joints of the second through fifth fingers. Normal phalanges of the second through fifth fingers. Normal soft tissues. RAD/Hand Min 3 Views IMPRESSION: Normal x-ray examination of the hand. Electronically Signed: Robert Harrison MD at 12:06 EST ,
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
[2023-06-28] MEDS: Acetaminophen 500 MG Tablet 1000 MG PO (11:56)
--- NOTE | 2023-06-28 13:04 | NURSING ---
Patient denies any SI or harm to others. Patient did not want to talk to crisis at this time but agreed to schedule a counseling appt for follow up. Patient leaves with mother.
== END 2023-06-28 13:06 | disposition home or self-care (01) ==
PROVIDERS: Emergency Provider Emergency Medicine; PCP Family Medicine; Visit Provider Emergency Medicine
DX: F31.9 Bipolar disorder, unspecified (principal); S60.221A Contusion of right hand, initial encounter; W22.09XA Striking against other stationary object, initial encounter; F84.0 Autistic disorder; F90.9 Attention-deficit hyperactivity disorder, unspecified type; Z79.899 Other long term (current) drug therapy; Z87.891 Personal history of nicotine dependence
CPT/HCPCS: 73130; 99282